=== PATIENT | female | born 1995 | race Caucasian/White ===

== ENCOUNTER → 2016-11-24 | Outpatient (CLI) | payer OTHER ==
[~2016-11-24] MED LIST: ATV5X PO; EFFSR75 PO; FLUO10CA24 PO; LITH1TAB PO; METF750T PO; OLAN1TAB9 PO; ZYP15 PO
--- NOTE | 2016-11-24 11:12 | DIAGNOSTIC IMAGING REPORT ---
CHEST 2 VIEWS ROUTINE CLINICAL HISTORY: J45.901 Asthma with acute exacerbation dyspnea COMPARISON STUDY: 11/16/2015 FINDINGS: The bones soft tissues and hemidiaphragms are normal. The cardiomediastinal silhouette is normal. The lungs are clear. The pulmonary vasculature is normal. IMPRESSION: Negative chest. Electronically signed by: Shiv Ta M.D. 11/24/2016 11:10 AM Dictated Date/Time: 11/24/2016 11:10 AM
== END | disposition home or self-care (01) ==
LOC: C.RAD1850 10:51
PROVIDERS: ATTEND Nurse Practitioner Family
DX: J45.901 Unspecified asthma with (acute) exacerbation (principal)

== ENCOUNTER → 2017-05-18 | Outpatient (CLI) | payer OTHER ==
[2017-05-18 15:44] LABS: BASO % 0.3 %; BASO ABS # 0.03 K/uL (0-0.2); COMPLETE YES; EOS % 0.9 %; HEMATOCRIT 39.3 % (37-47); IG% 0.4 %; LYMPH % 34.3 %; LYMPH ABS # 3.32 K/uL (1.2-3.4); MEAN CELL VOLUME 85.1 fL (80-100); MEAN CORPUSCULAR HEMOGLOBIN 28.6 pg (25-34); MEAN CORPUSCULAR HGB CONC 33.6 g/dl (32-36); MEAN PLATELET VOLUME 11.1 fL (7.4-10.4); MONO % 5.8 %; NEUT % 58.3 %; PLATELET COUNT 230 K/uL (130-400); RED BLOOD COUNT 4.62 M/uL (4.2-5.4); WHITE BLOOD COUNT 9.68 K/uL (4.8-10.8)
[2017-05-18 15:58] LABS: ALT/SGPT 62 U/L (12-78); BLOOD UREA NITROGEN 12 mg/dl (7-18); BUN/CREATININE RATIO 15.8 (10-20); CALCIUM 8.8 mg/dl (8.5-10.1); CARBON DIOXIDE 25 mmol/L (21-32); CHLORIDE 103 mmol/L (98-107); CHOLESTEROL 210 mg/dl (0-200); CREATININE 0.76 mg/dl (0.60-1.20); GLUCOSE 262 mg/dl (70-99); POTASSIUM 3.8 mmol/L (3.5-5.1); SODIUM 137 mmol/L (136-145); TRIGLYCERIDES 470 mg/dl (0-150)
[2017-05-18 16:01] LABS: ALKALINE PHOSPHATASE 86 U/L (45-117); AST/SGOT 64 U/L (15-37); CHOLESTEROL/HDL RATIO 6.4; HDL CHOLESTEROL 33 mg/dl
[2017-05-19 07:03] LABS: ESTIMATED AVERAGE GLUCOSE 200 mg/dl; HA1C FLAG Normal (Normal)
== END | disposition home or self-care (01) ==
LOC: C.LAB1850 13:47
PROVIDERS: ATTEND Family Medicine
DX: E11.9 Type 2 diabetes mellitus without complications (principal); R42 Dizziness and giddiness

== ENCOUNTER 2017-07-18 11:54 | Inpatient (IN) | payer OTHER ==
[~2017-07-18] VITALS: Ht 152.4 cm; Wt 85.5 kg
--- NOTE | 2017-07-18 12:40 | EMERGENCY ROOM VISIT NOTE ---
History Report prepared by Saran: Chip Hawkins Under the Supervision of: Dr. Reji Aiken M.D. First contact with patient: 12:21 Chief Complaint: MENTAL HEALTH EVALUATION Stated Complaint: MENTAL HEALTH History of Present Illness The patient is a 22 year old female who presents to the Emergency Room for a mental health evaluation. She has had suicidal ideation for the past 2 days with a plan to stab herself to . On June 25 of this year, she discontinued her Zyprexa and started Latuda. She notes that her Latuda is making her nauseated and she is experiencing vomiting. Although her sugars are high, after stopping the Zyprexa her sugars are improving. She is also having mood swings, trouble concentrating, and spells of jealousy. She denies any homicidal ideation. She is not taking [place]. She cut herself (scraped) very mildly on her left arm recently. In the past, she has been evaluated as an inpatient at multiple psychiatric facilities with the most recent stay 3 years ago. Source of History: patient Onset: Two days ago Position: other (Mental Health) Symptom Intensity: moderate Quality: other (SI) Timing: constant Associated Symptoms: + nausea, + vomiting Note: She has a SI with a plan. She denies any HI. Review of Systems See HPI for pertinent positives & negatives. A total of 10 systems reviewed and were otherwise negative. Past Medical & Surgical Medical Problems: (1) Atrial septal defect (2) Depression (3) Schizophrenia Family History FH: heart disease Social History Smoking Status: Never Smoker Alcohol Use: none Marital Status: single Housing Status: lives with family Occupation Status: student Current/Historical Medications Scheduled Alprazolam (Xanax), 0.5 MG PO DAILY Bupropion (Wellbutrin), 50 MG PO QAM Escitalopram (Lexapro), 10 MG PO AFTERNOON Escitalopram Oxalate (Lexapro), 20 MG PO QAM Lurasidone Hcl (Latuda), 40 MG PO QAM Metformin Hcl (Glucophage), 500 MG PO BID Oxcarbazepine (Trileptal), 300 MG PO TID Polyethylene (Miralax), 17 GM PO DAILY Allergies Coded Allergies: Azithromycin (Unverified Allergy, Unknown, unknown, 07/18/17) Carbamazepine (Verified Allergy, Unknown, 07/18/17) Cefaclor (Verified Allergy, Unknown, 07/18/17) Sulfisoxazole (Verified Allergy, Unknown, 07/18/17) Physical Exam Vital Signs Date Time Temp Pulse Resp B/P (MAP) Pulse Ox O2 Delivery O2 Flow Rate FiO2 07/18/17 12:59 78 16 127/79 96 Room Air 07/18/17 11:57 37.0 88 18 122/74 98 Room Air Physical Exam GENERAL: Patient is in no acute distress. HEENT: No acute trauma, normocephalic atraumatic, mucous membranes moist, no nasal congestion, no scleral icterus. NECK: No stridor, no adenopathy, no meningismus, trachea is midline. LUNGS: Clear to auscultation bilaterally, no wheeze, no rhonchi, breath sounds equal. HEART: Without murmurs gallops or rubs, regular rate and rhythm. ABDOMEN: Soft, nontender, bowel sounds positive, no hernias, no peritonitis. EXTREMITIES: No cyanosis or edema, full range of motion of all the joints without pain or difficulty, no signs for acute trauma. NEUROLOGIC: Oriented x 3, no acute motor or sensory deficits, no focal weakness. SKIN: No rash, no jaundice, no diaphoresis. PSYCHOLOGIC: Flat affect. Cooperative and voluntary. Admits to suicidal ideation with a plan to stab herself. Medical Decision & Procedures Laboratory Results 07/18/17 12:15 07/18/17 12:15 Test 07/18/17 12:15 07/18/17 12:30 Red Blood Count 4.96 M/uL (4.2-5.4) Mean Corpuscular Volume 86.9 fL (80-100) Mean Corpuscular Hemoglobin 28.6 pg (25-34) Mean Corpuscular Hemoglobin Concent 32.9 g/dl (32-36) RDW Standard Deviation 40.0 fL (36.4-46.3) RDW Coefficient of Variation 12.5 % (11.5-14.5) Mean Platelet Volume 10.8 fL (7.4-10.4) Anion Gap 8.0 mmol/L (3-11) Est Creatinine Clear Calc Drug Dose 107.5 ml/min Estimated GFR () 122.3 Estimated GFR (Non- 105.5 BUN/Creatinine Ratio 14.0 (10-20) Calcium Level 9.1 mg/dl (8.5-10.1) Total Bilirubin 0.3 mg/dl (0.2-1) Aspartate Amino Transf (AST/SGOT) 23 U/L (15-37) Alanine Aminotransferase (ALT/SGPT) 42 U/L (12-78) Alkaline Phosphatase 95 U/L (45-117) Total Protein 8.0 gm/dl (6.4-8.2) Albumin 4.1 gm/dl (3.4-5.0) Globulin 3.9 gm/dl (2.5-4.0) Albumin/Globulin Ratio 1.1 (0.9-2) Thyroid Stimulating Hormone (TSH) 0.650 uIu/ml (0.300-4.500) Human Chorionic Gonadotropin, Qual NEG (NEG) Salicylates Level < 1.7 mg/dl (2.8-20) Acetaminophen Level < 2 ug/ml (10-30) Ethyl Alcohol mg/dL < 3.0 mg/dl (0-3) Urine Color DK YELLOW Urine Appearance CLEAR (CLEAR) Urine pH 6.0 (4.5-7.5) Urine Specific [place] 1.030 (1.000-1.030) Urine Protein NEG (NEG) Urine Glucose (UA) NEG (NEG) Urine Ketones TRACE (NEG) Urine Occult Blood NEG (NEG) Urine Nitrite NEG (NEG) Urine Bilirubin NEG (NEG) Urine Urobilinogen NEG (NEG) Urine Leukocyte Esterase NEG (NEG) Urine Opiates Screen NEG (NEG) Urine Methadone, Qualitative NEG (NEG) Urine Barbiturates NEG (NEG) Urine Phencyclidine (PCP) Level NEG (NEG) Ur Amphetamine/Methamphetamine NEG (NEG) MDMA (Ecstasy) Screen POS (NEG) Urine Benzodiazepines Screen POS (NEG) Urine Cocaine Metabolite NEG (NEG) Urine Marijuana (THC) NEG (NEG) Laboratory results reviewed by me. ED Course 1221: The patient was evaluated in room A7. A complete history and physical exam was performed. 1635: She was accepted to [address] [place] [address] for further mental health treatment and management as an inpatient. Medical Decision Differential diagnosis includes but is not limited to drug or alcohol abuse, medication reaction, situational depression, psychosis, electrolyte imbalance, and thyroid disorder. There is no leukocytosis or concerning anemia. No significant electrolyte abnormality, kidney failure or hepatitis. The patient appears to be in a euthyroid state. testing is negative. Urinalysis does not show infection. Urine tox shows benzos and possibly ecstasy. Aspirin and Tylenol levels were undetectable. Alcohol level was undetectable. The patient presents with suicidal ideation with a plan. She is voluntary and cooperative. She was felt medically clear for a psychiatric evaluation. She has been accepted into our [facility] [place] [facility]. She is being transferred to that portion of the hospital. Medication Reconcilliation Current Medication List: was personally reviewed by me Blood Pressure Screening Patient's blood pressure: Normal blood pressure Blood pressure disposition: Did not require urgent referral Impression Primary Impression: Suicidal ideation Scribe Attestation The scribe's documentation has been prepared under my direction and personally reviewed by me in its entirety. I confirm that the note above accurately reflects all work, treatment, procedures, and medical decision making performed by me. Departure Information Dispostion Mental Health Acute Care Referrals No Doctor, Assigned (PCP) Patient Instructions [facility]
[2017-07-18 12:45] LABS: URINE APPEARANCE CLEAR (CLEAR); URINE BILIRUBIN NEG (NEG); URINE COLOR DK YELLOW; URINE NITRITE NEG (NEG); UROBILINOGEN NEG (NEG); ZZUR CULT IF INDIC CLEAN CATCH NO
[2017-07-18 12:47] LABS: MANUAL MICROSCOPIC REQUIRED? NO; REVIEW REQ? NO
[2017-07-18 13:05] LABS: CALCIUM 9.1 mg/dl (8.5-10.1); CREATININE 0.79 mg/dl (0.60-1.20); POTASSIUM 3.8 mmol/L (3.5-5.1)
[2017-07-18 13:15] LABS: ALB/GLOB RATIO 1.1 (0.9-2); THYROID STIMULATING HORMONE 0.65 uIu/ml (0.300-4.500)
[2017-07-18 13:16] LABS: HEMATOCRIT 43.1 % (37-47); MEAN CELL VOLUME 86.9 fL (80-100); MEAN CORPUSCULAR HEMOGLOBIN 28.6 pg (25-34); MEAN CORPUSCULAR HGB CONC 32.9 g/dl (32-36); MEAN PLATELET VOLUME 10.8 fL (7.4-10.4); PLATELET COUNT 290 K/uL (130-400); RED BLOOD COUNT 4.96 M/uL (4.2-5.4); WHITE BLOOD COUNT 10.68 K/uL (4.8-10.8)
[2017-07-18 13:16] LABS: BENZODIAZEPINE, URINE POS (NEG); COCAINE,URINE NEG (NEG); PHENCYCLIDINE, URINE NEG (NEG)
[2017-07-18 13:17] LABS: PREG INTERNAL NEGATIVE QC NEG CLEAR BACKGROUND; PREG INTERNAL POSITIVE QC POS CONTROL LINE
[2017-07-18] MEDS ORDERED: ESCI10TA17 PO (13:29)
[2017-07-18] MEDS ORDERED: OXCA300T PO (13:29)
[2017-07-18] MEDS ORDERED: MRLP17 PO (13:29)
[2017-07-18] MEDS ORDERED: GLC/500 PO (13:29)
[2017-07-18] MEDS ORDERED: ALPR-411 PO (13:29)
[2017-07-18] MEDS ORDERED: ESCI1TAB10 PO (13:29)
[2017-07-18] MEDS ORDERED: BUPR-83 PO (13:29)
[2017-07-18] MEDS ORDERED: LURA40TA PO (13:29)
[2017-07-18 13:31] LABS: ACETAMINOPHEN < 2 ug/ml (10-30)
[2017-07-18 17:00] VITALS: O2SAT 97
[2017-07-18] MEDS ORDERED: SODIUM CHLORIDE 0.65% NA SOLN 45 ML (OCEAN) PRN (17:00)
[2017-07-18] MEDS ORDERED: ALUMINUM/MAGNESIUM SUSP 30 ML UDC PO PRN (17:00)
[2017-07-18] MEDS ORDERED: MAGNESIUM HYDROXIDE SUSP 30 ML UDC PO PRN (17:00)
[2017-07-18] MEDS ORDERED: BISMUTH SUBSALICYLATE PER ML OMNICELL CHARGE PO PRN (17:00)
[2017-07-18] MEDS: METFORMIN HCL 500 MG TAB PO SCH (17:45)
[2017-07-18 18:14] VITALS: BP 123/79; PULSE 85; TEMP 36.8; BMI 36.8
[2017-07-18] MEDS: hydrOXYzine HCL 25 MG TAB PO PRN ×2 (18:33→21:19)
[2017-07-18] MEDS: OXCARBAZEPINE 150 MG TAB PO SCH (21:16)
[2017-07-19 06:37] VITALS: Ht 152.4 cm; Wt 85.5 kg
[2017-07-19 06:51] VITALS: BP_SYST 118; BP_SYST 125; BP_DIAS 72; BP_DIAS 76; PULSE 81; PULSE 89; TEMP 36.6
[2017-07-19] MEDS: METFORMIN HCL 500 MG TAB PO SCH ×2 (10:39→17:23)
[2017-07-19] MEDS: ESCITALOPRAM OXALATE 20 MG TAB PO SCH (10:39)
[2017-07-19] MEDS: OXCARBAZEPINE 150 MG TAB PO SCH ×3 (10:40→20:49)
[2017-07-19] MEDS: hydrOXYzine HCL 25 MG TAB PO PRN ×4 (10:41→20:55)
[2017-07-19] MEDS: POLYETHYLENE (MIRALAX) 17 GM PACK PO SCH (10:43)
--- NOTE | 2017-07-19 11:21 | Psychiatric History & Physical ---
History Date of Service Jul 19, 2017. Identifying Data Keyona Acuña is a 22-year-old female who currently lives in with her adoptive parents in [place]. Keyona Acuña was admitted on a 201 voluntary commitment. Patient is admitted from home. The patient was brought to the ED by the family. Information provided by the patient is considered to be somewhat limited given her intellectual disability but she clearly understands her rights under the 201 commitment as I explained them to her. Mother was contacted by phone for additional history. Chief Complaint "I can't live with my sisters, I'm not sure I want to live anymore period". History of Present Illness Patient was last admitted to [facility] in 2014 under similar circumstances-- argumentative with sisters and then threatening to stab self. Keyona admittedly can't tolerate when her sisters (also intellectually disabled, ages 21 and 31) get attention. She will make dramatic statements to gain attention and engage in self harm behaviors like stabbing at her chest with a pencil or scratching the back of her arms. She apparently put her hands to her neck as a gesture last pm with staff and scratched at her forearm but responded to low dose Vistaril. She has been following with Dr. Keane who had to discontinue her longstanding rx of Zyprexa in early May due to elevated blood sugar and mother did confirm that she has been diagnosed with Type II diabetes at this point. The patient likes Latuda as she has been losing weight but she seems to have significant nausea and poor PO with in. She has lost 21 lbs since starting it. Admittedly they have only tried in morning and she doesn't eat much breakfast. She has also been somewhat resistant to taking it due to constipation but ultimately complies. They recently attempted to decrease Trileptal dosing by 1 pill and she exhibited increase in manic symptoms--poor sleep, increased irritability and hyperverbal. The patient reports feeling in good spirits when out of the house at her day program with Michelle EDMONDS. Upon return home she feels depressed, hopeless and states she will refuse to return home. She is anhedonic at home and "always angry". Appetite and sleep have been more disrupted. She cannot really comment on anhedonia and lacks insight into her manic symptoms. She denies miranda "for some time" meaning years and states that she used to hear a man's voice and she odd figures like a ball with spikes, etc. Past Psychiatric History Current OP Treatment: psychiatrist (Lakhwinder), therapist (Taylor, same office), outpatient case manager (Katty) Prior OP Treatment: psychiatrist (past rx with Dr. Emanuel, Dr. Rosales prior to 2012 EHR conversion, initially with Dr. 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 2, 1 seizure that lasted >45 min, was on Depakote for several years after) (1) Atrial septal defect Type II DM per mother Allergies Allergies: Coded Allergies: Azithromycin (Unverified Allergy, Unknown, unknown, 07/18/17) Carbamazepine (Verified Allergy, Unknown, 07/18/17) Cefaclor (Verified Allergy, Unknown, 07/18/17) Sulfisoxazole (Verified Allergy, Unknown, 07/18/17) Home Medications Scheduled Alprazolam (Xanax), 0.5 MG PO DAILY Bupropion (Wellbutrin), 50 MG PO QAM Escitalopram (Lexapro), 10 MG PO AFTERNOON Escitalopram Oxalate (Lexapro), 20 MG PO QAM Lurasidone Hcl (Latuda), 40 MG PO QAM Metformin Hcl (Glucophage), 500 MG PO BID Oxcarbazepine (Trileptal), 300 MG PO TID Polyethylene (Miralax), 17 GM PO DAILY Family History FH: heart disease History of Suicide: No History of Substance Abuse: No Psychiatric History: Yes (biological mother and maternal grandmother with schizophrenia) Alcohol Use Alcohol Use In Past 12 Months: No AUDIT Total Score: 0 Smoking Use Smoking Status: Never Smoker Substance History denied Personal History Lives in: [place] with adoptive parents and 2 adoptive sisters Childhood: adopted at Education: graduated from high school ([employer] Work History: disabled but attends [employer] Relationship History: never Children: none Legal History: none Psychological Trauma History: Denies Hx Traumatic Event Review of Systems Psych: denies symptoms other than stated above Constitutional: intentional weight loss Cardiovascular: denied GI: nausea, poor PO, constipation Neurologic: hx of migraine headaches Remainder of 10 body systems also reviewed and denied other than noted above. Examination Physical Examination A physical exam was performed in the ER prior to admission to the unit by Dr. Aiken. I accept that physical as correct/medical clearance for the inpatient physical exam. Vital Signs Vital Signs Past 12 Hours Date Time Temp Pulse Resp B/P (MAP) Pulse Ox O2 Delivery O2 Flow Rate FiO2 07/19/17 06:51 36.6 81 16 125/72 89 118/76 Laboratory Results Last 24 Hours Test 07/18/17 12:15 07/18/17 12:30 White Blood Count 10.68 K/uL Red Blood Count 4.96 M/uL Hemoglobin 14.2 g/dL Hematocrit 43.1 % Mean Corpuscular Volume 86.9 fL Mean Corpuscular Hemoglobin 28.6 pg Mean Corpuscular Hemoglobin Concent 32.9 g/dl RDW Standard Deviation 40.0 fL RDW Coefficient of Variation 12.5 % Platelet Count 290 K/uL Mean Platelet Volume 10.8 fL Sodium Level 139 mmol/L Potassium Level 3.8 mmol/L Chloride Level 102 mmol/L Carbon Dioxide Level 29 mmol/L Anion Gap 8.0 mmol/L Blood Urea Nitrogen 11 mg/dl Creatinine 0.79 mg/dl Est Creatinine Clear Calc Drug Dose 107.5 ml/min Estimated GFR () 122.3 Estimated GFR (Non- 105.5 BUN/Creatinine Ratio 14.0 Random Glucose 107 mg/dl Calcium Level 9.1 mg/dl Total Bilirubin 0.3 mg/dl Aspartate Amino Transf (AST/SGOT) 23 U/L Alanine Aminotransferase (ALT/SGPT) 42 U/L Alkaline Phosphatase 95 U/L Total Protein 8.0 gm/dl Albumin 4.1 gm/dl Globulin 3.9 gm/dl Albumin/Globulin Ratio 1.1 Thyroid Stimulating Hormone (TSH) 0.650 uIu/ml Human Chorionic Gonadotropin, Qual NEG Salicylates Level < 1.7 mg/dl Acetaminophen Level < 2 ug/ml Ethyl Alcohol mg/dL < 3.0 mg/dl Urine Color DK YELLOW Urine Appearance CLEAR Urine pH 6.0 Urine Specific [place] 1.030 Urine Protein NEG Urine Glucose (UA) NEG Urine Ketones TRACE Urine Occult Blood NEG Urine Nitrite NEG Urine Bilirubin NEG Urine Urobilinogen NEG Urine Leukocyte Esterase NEG Urine Opiates Screen NEG Urine Methadone, Qualitative NEG Urine Barbiturates NEG Urine Phencyclidine (PCP) Level NEG Ur Amphetamine/Methamphetamine NEG MDMA (Ecstasy) Screen POS Urine Benzodiazepines Screen POS Urine Cocaine Metabolite NEG Urine Marijuana (THC) NEG Mental Examination During interview pt is: alert and oriented, cooperative Appearance: disheveled Eye contact is: fair Motor behavior is: no abnormal motor movements Speech: normal in rate, rhythm & volume Affect: depressed Mood is: depressed Thought content: reality based without delusions Suicidal thought are: present, Plan: present ("scratch myself"), Intent: denied Homicidal thoughts are: denied Hallucinations: denies auditory, denies visual Cognition: language grossly intact Intelligence estimated to be: below average Insight: limited Judgement: limited Impression / Recommendations Impression Keyona is a 22 yo female with intellectual disability and a long standing diagnosis of schizoaffective disorder. She has been exhibiting breakthrough mood instability and acting out behaviors at home following discontinuation of Zyprexa due to medical side effects (hyperglycemia). Inventory Assets Strengths: supportive family, established outpatient providers Needs: more mature coping skills Risk Factors Assessment : Yes Access to guns: No Mental Health Diagnoses: Yes Substance use disorders: No Previous attempt: Yes Previous psychiatric stay: Yes Protective Factors Assessment Supportive family: Yes Recommendations (1) Schizoaffective disorder 07/19--The patient is admitted to [facility] ([facility]) on q 15 min checks (behavioral with suicide precautions) for safety. The patient will participate in group, recreational and milieu therapies and will be offered additional individual and family sessions as clinically appropriate. Will hold Wellbutrin given low dose, failure of previous titration, seizure hx, and current manic symptoms Vistaril prn (appears effective) in place of Xanax 0.5 mg po prn as reportedly sedating and ineffective at home mother and patient agreeable to titration of Trileptal 1200 mg total daily dose consider decrease in Lexapro if evidence of activation on unit restart Latuda (held overnight) at 20 mg with evening meal to improve tolerability pending more complete list of prior med trials. Mother relates 40 mg was lowest dose tried. Family aware of long term acute care registered nurse risks/need for monitoring for metabolic issues and TD. re-reviewed black box warnings re: SI with SSRIs in patients <24 yo (2) Type 2 diabetes mellitus continue metformin, doesn't appear to be cause of GI complaints will check lipid profile, glucose and HgbA1C in am given antipsychotic also am gluc checks like at home CPT Code Initial Hospital Care: 06920 Problem Qualifiers (1) Schizoaffective disorder: Schizoaffective disorder type: bipolar Qualified Codes: F25.0 - Schizoaffective disorder, bipolar type (2) Type 2 diabetes mellitus: Diabetes mellitus complication status: without complication
[2017-07-19] MEDS: ESCITALOPRAM OXALATE 10 MG TAB PO SCH (17:19)
[2017-07-19] MEDS: LURASIDONE HCL 40 MG TAB PO SCH (17:25)
[2017-07-19] MEDS: ACETAMINOPHEN 325 MG TAB PO PRN (20:55)
[2017-07-20] MEDS: ACETAMINOPHEN 325 MG TAB PO PRN (05:46)
[2017-07-20 06:58] VITALS: BP_SYST 122; BP_SYST 124; BP_DIAS 78; BP_DIAS 85; PULSE 75; PULSE 86; TEMP 36.7
[2017-07-20] MEDS: ESCITALOPRAM OXALATE 20 MG TAB PO SCH (08:42)
[2017-07-20] MEDS: OXCARBAZEPINE 150 MG TAB PO SCH ×3 (08:42→21:25)
[2017-07-20] MEDS: POLYETHYLENE (MIRALAX) 17 GM PACK PO SCH (08:43)
--- NOTE | 2017-07-20 10:07 | Psychiatric Progress Notes ---
Progress Note Date of Service Jul 20, 2017. Interval History Keyona Acuña is a 22-year-old female who currently lives in with her adoptive parents in [place]. Keyona Acuña was admitted on a 201 voluntary commitment. Patient is admitted from home. The patient was brought to the ED by the family. Information provided by the patient is considered to be somewhat limited given her intellectual disability but she clearly understands her rights under the 201 commitment as I explained them to her. Mother was contacted by phone for additional history. Chief Complaint "Not feeling too good". Subjective Patient was seen & assessed interval progress reviewed with Treatment Team. Staff report she participated in groups, ate dinner with peers, and had a visit from her father. She requested hydroxyzine 50mg last night, and slept well. This morning she reported dizziness, headache and nausea, and vomited prior to breakfast, but then ate her breakfast. She has been able to keep it down. She was restarted on lurasidone 20mg last PM with dinner, hydroxyzine was ordered in place of alprazolam as it was oversedating, oxcarbazepine was increased, Metformin was continued, and bupropion was held. Today, she reports feeling unwell, has a headache and nausea. She states this has been going on for "a while," initially saying it started before lurasidone, but later says it did not start until she started lurasidone. She states that her mood is improved, " I actually feel azucena happy," but says she doesn't want to go home "ever, because I'm afraid of my sisters, it's actually hate, and I'm afraid I'll turn on them." She reports longstanding anger at her sisters and issues with them. She has had anger outbursts and says she "flips out, afraid I'll just go nuts and kill them." She feels safe here, but not outside the hospital. She says her sisters "have severe MR, and I don't like being around them, don't like when people pay attention to them." Spoke to Seema, patient's mother, at her request. She also spoke with Dr. Cruz yesterday, and says she remembered some things she thought might be appropriate. She agrees that Keyona started having upset stomach when she started lurasidone at the end of May. (3 weeks prior to admission), and also seemed to be having more frequent headaches. She has also reported constipation and insomnia, but wanted to stay on the medication as she was losing weight, which she usually struggles to do. She had been doing better with decreased anger and jealousy as well on the lurasidone, which was a big improvement for her, so when she followed up with Dr. Keane last week, he increased from 20mg to 40mg daily, and decreased her oxcarbazepine (concern for constipation? per mother). Despite these changes, she had mood swings with anger and SI. She also has an apartment with Dr. Jones, her neurologist, for tingling in her body, trouble walking, and "a cold fischer to her brain." Review of Systems Constitutional: + weight loss, + weakness Abdomen: + nausea, + vomiting Sleep Information Total Hours of Sleep: 7.75 Meal Information Percent of Breakfast Consumed: 60 Percent of Lunch Consumed: 80 Percent of Dinner Consumed: 75 Mental Status Exam During interview pt is: alert and oriented, cooperative Appearance: disheveled Eye contact is: good Motor behavior is: steady gait & station (slowed), no abnormal motor movements Speech: normal in rate, rhythm & volume Affect: constricted (to tired, depressed, incongruent with stated mood) Mood is: other ("azucena happy") Thought process: goal directed, concrete Thought content: cognitive distortions (about sisters), reality based without delusions Suicidal thought are: denied Homicidal thoughts are: present (fears she will harm her sisters) Hallucinations: denies auditory, denies visual Cognition: attention grossly intact, language grossly intact Intelligence estimated to be: below average Insight: limited Judgement: limited Impression Keyona is a 22 yo female with intellectual disability and a long standing diagnosis of schizoaffective disorder. She has been exhibiting mood instability and acting out behaviors at home following discontinuation of olanzapine due to medical side effects (hyperglycemia), and requires inpatient treatment due to thoughts of harming her sisters, who are also ID, as she is jealous of the attention they receive. Multiple medication adjustments are being made here, including holding bupropion, restarting lurasidone and changing to dinner time to try to limit side effects, increasing her Trileptal for mood, and stopping alprazolam due to sedation. Plan (1) Schizoaffective disorder 07/19--The patient is admitted to [facility] ([facility]) on q 15 min checks (behavioral with suicide precautions) for safety. The patient will participate in group, recreational and milieu therapies and will be offered additional individual and family sessions as clinically appropriate. Will hold Wellbutrin given low dose, failure of previous titration, seizure hx, and current manic symptoms. Vistaril prn (appears effective) in place of Xanax 0.5 mg po prn as reportedly sedating and ineffective at home. Mother and patient agreeable to titration of Trileptal 1200 mg total daily dose. Consider decrease in Lexapro if evidence of activation on unit. Restart Latuda (held overnight) at 20 mg with evening meal to improve tolerability pending more complete list of prior med trials. Mother relates 40 mg was lowest dose tried. Family Aware of skilled nursing risks/need for monitoring for metabolic issues and TD. Re-reviewed black box warnings re: SI with SSRIs in patients <24 yo. 07/20--Continue escitalopram 20mg qam and 10mg qpm (consider decrease if appears activated/agitated), oxcarbazepine 300mg bid and 600mg qhs, and lurasidone 20mg with dinner (hold off on increasing dose due to nausea/vomiting , and lower dose may be used as metabolized by CYP 450 3A4, and oxcarbazepine is a mild inducer and inhibit CYP 450 2C19). --Re-order fasting labs for tomorrow, as patient ate crackers this AM so they weren't done. --She will need a family meeting with her parents once she is more stable, to review the issues with her sisters and work on discharge planning. --Request records from outpatient psychiatrist, Dr. Keane, and coordinate care. (2) Type 2 diabetes mellitus continue metformin, doesn't appear to be cause of GI complaints will check lipid profile, glucose and HgbA1C in am given antipsychotic also am gluc checks like at home 07/20--fasting labs ordered for this AM but don't appear to have been collected. (3) Nausea & vomiting 07/20--Patient reports headache, nausea, vomiting. Order ondansetron 4 mg when necessary nausea, has acetaminophen for headache, and will add ibuprofen as well. Encouraged to drink plenty of water to avoid dehydration. Discharge / Aftercare Planning Psychiatrist: Name: Dr. Keane Therapist: Name: Taylor Keane's office Finance Advisor: Name: Katty Yanez from [facility] Visit Code E&M Code: 52001 Inventory Assets Strengths: supportive family, established outpatient providers Needs: more mature coping skills Risk Factors Assessment : Yes Mental Health Diagnoses: Yes Substance use disorders: No Previous attempt: Yes Previous psychiatric stay: Yes Protective Factors Assessment Supportive family: Yes Data Vital Signs Last 24 Hrs: Date Time Temp Pulse Resp B/P (MAP) Pulse Ox O2 Delivery O2 Flow Rate FiO2 07/20/17 06:58 36.7 75 16 124/78 86 122/85 Meds Administered Last 24 Hrs: Meds Administered (Past 24Hrs) Medications (Trade) Dose Ordered Sig/[place] Route Start Time Stop Time Status Last Admin Dose Admin Acetaminophen (Tylenol Tab) 650 mg Q4H PRN PO 07/18/17 17:00 08/17/17 16:59 07/20/17 05:46 650 MG Hydroxyzine HCl (Vistaril Tab) 50 mg HSZ PRN PO 07/18/17 17:00 08/17/17 16:59 07/19/17 20:55 50 MG Hydroxyzine HCl (Vistaril Tab) 25 mg Q4H PRN PO 07/18/17 17:00 08/17/17 16:59 07/19/17 19:06 25 MG Escitalopram Oxalate (Lexapro Tab) 10 mg DAILYBD PO 07/19/17 16:00 08/18/17 15:59 07/19/17 17:19 10 MG Escitalopram Oxalate (Lexapro Tab) 20 mg QAM PO 07/19/17 09:00 08/18/17 08:59 07/20/17 08:42 20 MG Metformin HCl (Glucophage Tab) 500 mg BIDM PO 07/18/17 17:45 07/19/17 10:45 DC 07/19/17 10:39 500 MG Oxcarbazepine (Trileptal Tab) 300 mg TID PO 07/18/17 21:00 07/19/17 10:55 DC 07/19/17 10:40 300 MG Oxcarbazepine (Trileptal Tab) 300 mg BID17 PO 07/19/17 17:00 08/17/17 20:59 07/20/17 08:42 300 MG Oxcarbazepine (Trileptal Tab) 600 mg HS PO 07/19/17 22:00 08/18/17 21:59 07/19/17 20:49 600 MG Lurasidone HCl (Latuda Tab) 20 mg QDD PO 07/19/17 17:45 08/18/17 17:44 07/19/17 17:25 20 MG Metformin HCl (Glucophage Tab) 500 mg BID@1230,1745 PO 07/19/17 17:45 08/18/17 17:44 07/19/17 17:23 500 MG Lab Results Last 24 Hrs: Last 24 Hours Test 07/19/17 20:41 07/20/17 07:27 07/20/17 08:00 Bedside Glucose 134 mg/dl 142 mg/dl Problem Qualifiers (1) Schizoaffective disorder: Schizoaffective disorder type: bipolar Qualified Codes: F25.0 - Schizoaffective disorder, bipolar type (2) Type 2 diabetes mellitus: Diabetes mellitus complication status: without complication
[2017-07-20] MEDS: METFORMIN HCL 500 MG TAB PO SCH ×2 (12:20→19:53)
[2017-07-20] MEDS: IBUPROFEN 600 MG TAB PO PRN (13:03)
[2017-07-20] MEDS: ONDANSETRON 4MG OD TAB PO PRN (17:58)
[2017-07-20 18:17] VITALS: BP 133/84; PULSE 85; TEMP 36.9
[2017-07-20] MEDS ORDERED: NURSING VERBAL MED ORDER ONE (18:30)
[2017-07-20] MEDS ORDERED: SUMATRIPTAN SUCCINATE 50 MG TAB PO ONE (18:45)
[2017-07-20] MEDS ORDERED: SUMATRIPTAN SUCCINATE 50 MG TAB PO PRN (18:45)
[2017-07-20] MEDS: ESCITALOPRAM OXALATE 10 MG TAB PO SCH (19:53)
[2017-07-20] MEDS: LURASIDONE HCL 40 MG TAB PO SCH (19:54)
[2017-07-20] MEDS: hydrOXYzine HCL 25 MG TAB PO PRN (21:27)
[2017-07-21] MEDS: IBUPROFEN 600 MG TAB PO PRN ×2 (05:21→15:24)
[2017-07-21 06:46] VITALS: BP_SYST 104; BP_SYST 113; BP_DIAS 68; BP_DIAS 69; PULSE 83; PULSE 91; TEMP 36.8
[2017-07-21] MEDS: POLYETHYLENE (MIRALAX) 17 GM PACK PO SCH (09:00)
[2017-07-21 09:17] LABS: ESTIMATED AVERAGE GLUCOSE 151 mg/dl; HA1C FLAG Normal (Normal)
[2017-07-21] MEDS: ESCITALOPRAM OXALATE 20 MG TAB PO SCH (09:26)
[2017-07-21] MEDS: OXCARBAZEPINE 150 MG TAB PO SCH ×3 (09:27→21:07)
[2017-07-21 09:35] LABS: CHOLESTEROL/HDL RATIO 4.4
[2017-07-21] MEDS: hydrOXYzine HCL 25 MG TAB PO PRN ×2 (09:55→21:07)
[2017-07-21] MEDS ORDERED: ALPR1TAB3 PO (10:29)
[2017-07-21] MEDS ORDERED: BUPR100T8 PO (10:30)
[2017-07-21] MEDS ORDERED: ESCI1TAB10 PO (10:30)
[2017-07-21] MEDS ORDERED: LURA40TA PO (10:32)
[2017-07-21] MEDS ORDERED: OXCA300T PO (10:32)
[2017-07-21] MEDS ORDERED: ZOLP10TA PO (10:33)
[2017-07-21] MEDS ORDERED: ALPRAZOLAM 0.5 MG TAB PO SCH (10:45)
[2017-07-21] MEDS: METFORMIN HCL 500 MG TAB PO SCH ×2 (12:34→17:40)
--- NOTE | 2017-07-21 13:35 | Psychiatric Progress Notes ---
Progress Note Date of Service Jul 21, 2017. Interval History Keyona Acuña is a 22-year-old female who currently lives in with her adoptive parents in [place]. Keyona Acuña was admitted on a 201 voluntary commitment. Patient is admitted from home. The patient was brought to the ED by the family. Information provided by the patient is considered to be somewhat limited given her intellectual disability but she clearly understands her rights under the 201 commitment as I explained them to her. Mother was contacted by phone for additional history. Chief Complaint "I can't breathe". Subjective Patient was seen & assessed interval progress reviewed with Nursing. Staff report the patient was doing better on the unit last evening and this morning, with less anxiety, although she continued to report upset stomach, which she told staff she thought was due to being premenstrual. She had a good visit with her mother, and reported improved mood a community meeting last night. She requested and received Vistaril for sleep. This morning, she became anxious during her family meeting with her parents, was breathing heavily and wailing, and at times said that she couldn't catch her breath. Her parents shared that she has always been dependent on them, is not able to live independently, and has always been jealous of the attention that her sisters receive. Both sisters are severely intellectually disabled and function at a much lower level than the patient. In the past, the patient has declined referrals to ID group homes, as she does not want to be around other individuals with ID. She goes to a day program, [employer], where she goes on outings and volunteers, and does quite well in the program, but then becomes upset when she returns home and is around her sisters. She does get special alone time with her parents when her sisters private caregivers come, and has been able to go on vacation with her parents without her sisters. Parents were informed of the patient's statements that she would like to kill her sisters, and although they state she has become angry at them in the past, she has never made any attempt to harm them. They also confirmed that the patient is never left alone with them. Parents requested this physician participate in the meeting and had questions about why certain medications were adjusted, expressing their opinion that if the patient gets on the right medications she will no longer have negative thoughts about her sisters. Attempted to explain that there may not be a medication that specifically changes her thinking about this, as it is fairly chronic, but that medications can be held to assist with her most troublesome symptoms, including mood instability, irritability, and anxiety. They were upset that Dr. Keane's records hadn't been received, and staff have contact his office to request a be sent today, and were informed that they are very busy, but they did send the medication list. The med rec was updated, as it was incorrect. After the meeting, the patient was very distraught, wailing, and had to be assisted to calm down with staff direction for deep breathing. Her mother requested that she be given Xanax, which she is prescribed at home, and a one-time dose was provided. Sleep Information Total Hours of Sleep: 6.25 Meal Information Percent of Breakfast Consumed: 60 Percent of Lunch Consumed: 100 Percent of Dinner Consumed: 0 Mental Status Exam During interview pt is: alert and oriented, cooperative Appearance: disheveled, appeared stated age, other (obese) Eye contact is: fair Motor behavior is: steady gait & station (slowed), no abnormal motor movements Speech: normal in rate, rhythm & volume Affect: depressed, tearful, anxious, constricted Mood is: other ("I can't breathe") Thought process: goal directed, concrete Thought content: cognitive distortions (about sisters) Suicidal thought are: denied (but think she would be suicidal if she thought she was going to hurt her sisters) Homicidal thoughts are: present (fears she will harm her sisters) Hallucinations: denies auditory, denies visual Cognition: attention grossly intact, language grossly intact, other (memory impaired) Intelligence estimated to be: below average Insight: limited Judgement: limited Medication Trials (1) Past Psych Meds Patient poor historian, mother not able to list all. Used [facility] pharmacy consistently for years, records note (not inclusive)--Tegretol, Depakote (for seizure prophylaxis), Prozac, [place], Ativan, Zyprexa (up to 20 mg, stopped due to metabolic syndrome), Effexor XR, prior trial of Latuda, Xanax , something that caused a bubble on pituitary by Dr. Rosales (?Invega - likely prolactinoma), Clozaril for [address] Casanova (walked around like a zombie) Last Edited By: Bettye Blankenship on Jul 21, 2017 13:24 Impression Keyona is a 22 yo female with intellectual disability and a long standing diagnosis of schizoaffective disorder. She has been exhibiting mood instability and acting out behaviors at home following discontinuation of olanzapine due to medical side effects (hyperglycemia), and requires inpatient treatment due to thoughts of harming her sisters, who are also ID, as she is jealous of the attention they receive. Multiple medication adjustments are being made here, including holding bupropion and alprazolam, restarting lurasidone and changing to dinner time to try to limit side effects, increasing her Trileptal for mood. Plan (1) Schizoaffective disorder 07/19--The patient is admitted to [facility] ([facility]) on q 15 min checks (behavioral with suicide precautions) for safety. The patient will participate in group, recreational and milieu therapies and will be offered additional individual and family sessions as clinically appropriate. Will hold Wellbutrin given low dose, failure of previous titration, seizure hx, and current manic symptoms. Vistaril prn (appears effective) in place of Xanax 0.5 mg po prn as reportedly sedating and ineffective at home. Mother and patient agreeable to titration of Trileptal 1200 mg total daily dose. Consider decrease in Lexapro if evidence of activation on unit. Restart Latuda (held overnight) at 20 mg with evening meal to improve tolerability pending more complete list of prior med trials. Mother relates 40 mg was lowest dose tried. Family Aware of exterminator termite risks/need for monitoring for metabolic issues and TD. Re-reviewed black box warnings re: SI with SSRIs in patients <24 yo. 07/20--Continue escitalopram 20mg qam and 10mg qpm (consider decrease if appears activated/agitated), oxcarbazepine 300mg bid and 600mg qhs, and lurasidone 20mg with dinner (hold off on increasing dose due to nausea/vomiting , and lower dose may be used as metabolized by CYP 450 3A4, and oxcarbazepine is a mild inducer and inhibit CYP 450 2C19). --Re-order fasting labs for tomorrow, as patient ate crackers this AM so they weren't done. --She will need a family meeting with her parents once she is more stable, to review the issues with her sisters and work on discharge planning. --Request records from outpatient psychiatrist, Dr. Keane, and coordinate care. 07/21--again requested records from Dr. Keane, as they have not yet been received. They only sent a medication list, and we are waiting the remainder of the records to determine past treatment. The patient no longer wants to take lurasidone due to the side effects of this causing, so we will discontinue it. Continue to monitor nausea, headache, and vomiting to see if this improves. Discussed other antipsychotic options - thinks Invega caused some sort of brain tumor, clozapine caused sedation, and olanzapine worsened metabolic syndrome and insulin tolerance. They're not sure if she has tried aripiprazole, which may be an option moving forward. For now, we will continue with the increased dose of oxcarbazepine and her home dose of escitalopram. (2) Type 2 diabetes mellitus continue metformin, doesn't appear to be cause of GI complaints will check lipid profile, glucose and HgbA1C in am given antipsychotic also am gluc checks like at home 07/20--fasting labs ordered for this AM but don't appear to have been collected. (3) Nausea & vomiting 07/20--Patient reports headache, nausea, vomiting. Order ondansetron 4 mg when necessary nausea, has acetaminophen for headache, and will add ibuprofen as well. Encouraged to drink plenty of water to avoid dehydration. Discharge / Aftercare Planning Psychiatrist: Name: Dr. Keane Therapist: Name: Taylor at Dr Keane's office Inspector Bullet Slugs: Name: Katty Yanez from [facility] Neurologist: Name: Dr. Jones Date of Appointment: Jul 28, 2017 Visit Code E&M Code: 94655 Inventory Assets Strengths: supportive family, established outpatient providers Needs: more mature coping skills Risk Factors Assessment : Yes Mental Health Diagnoses: Yes Substance use disorders: No Previous attempt: Yes Previous psychiatric stay: Yes Protective Factors Assessment Supportive family: Yes Data Vital Signs Last 24 Hrs: Date Time Temp Pulse Resp B/P (MAP) Pulse Ox O2 Delivery O2 Flow Rate FiO2 07/21/17 06:46 36.8 83 16 113/69 91 104/68 07/20/17 18:17 36.9 85 14 133/84 Meds Administered Last 24 Hrs: Meds Administered (Past 24Hrs) Medications (Trade) Dose Ordered Sig/[place] Route Start Time Stop Time Status Last Admin Dose Admin Escitalopram Oxalate (Lexapro Tab) 10 mg DAILYBD PO 07/19/17 16:00 08/18/17 15:59 07/20/17 19:53 10 MG Oxcarbazepine (Trileptal Tab) 300 mg BID17 PO 07/19/17 17:00 08/17/17 20:59 07/21/17 09:27 300 MG Oxcarbazepine (Trileptal Tab) 600 mg HS PO 07/19/17 22:00 08/18/17 21:59 07/20/17 21:25 600 MG Lurasidone HCl (Latuda Tab) 20 mg QDD PO 07/19/17 17:45 08/18/17 17:44 07/20/17 19:54 20 MG Metformin HCl (Glucophage Tab) 500 mg BID@1230,1745 PO 07/19/17 17:45 08/18/17 17:44 07/21/17 12:34 500 MG Ondansetron HCl (Zofran Odt) 4 mg Q4H PRN PO 07/20/17 10:00 08/19/17 09:59 07/20/17 17:58 4 MG Ibuprofen (Motrin Tab) 600 mg Q6 PRN PO 07/20/17 10:00 08/19/17 09:59 07/21/17 05:21 600 MG Sumatriptan Succinate (Imitrex Tab) 50 mg NOW ONCE PO 07/20/17 18:45 07/20/17 18:46 DC 07/20/17 19:01 50 MG Alprazolam (Xanax Tab) 0.5 mg TODAY@1045 PO 07/21/17 10:45 07/21/17 12:00 DC 07/21/17 10:55 0.5 MG Lab Results Last 24 Hrs: Last 24 Hours Test 07/21/17 08:32 Fasting Glucose 119 mg/dl Estimated Average Glucose 151 mg/dl Hemoglobin A1c 6.9 % Triglycerides Level 216 mg/dl Cholesterol Level 170 mg/dl HDL Cholesterol 39 mg/dl LDL Cholesterol, Calculated 88 mg/dl VLDL Cholesterol, Calculated 43 mg/dl Cholesterol/HDL Ratio 4.4 Problem Qualifiers (1) Schizoaffective disorder: Schizoaffective disorder type: bipolar Qualified Codes: F25.0 - Schizoaffective disorder, bipolar type (2) Type 2 diabetes mellitus: Diabetes mellitus complication status: without complication
[2017-07-21] MEDS: ESCITALOPRAM OXALATE 10 MG TAB PO SCH (17:40)
[2017-07-21] MEDS ORDERED: NURSING DECISION MEDICATION ORDER SCH (19:15)
[2017-07-21] MEDS ORDERED: VNTHFA/IN INH (19:26)
[2017-07-21] MEDS: ALBUTEROL HFA INHALER 18 GM INH PRN (19:54)
[2017-07-22 07:00] VITALS: BP 137/86; PULSE 94; TEMP 36.1
[2017-07-22] MEDS: ESCITALOPRAM OXALATE 20 MG TAB PO SCH (08:37)
[2017-07-22] MEDS: IBUPROFEN 600 MG TAB PO PRN (08:37)
[2017-07-22] MEDS: POLYETHYLENE (MIRALAX) 17 GM PACK PO SCH (08:37)
[2017-07-22] MEDS: OXCARBAZEPINE 150 MG TAB PO SCH ×3 (08:37→21:09)
[2017-07-22] MEDS: ONDANSETRON 4MG OD TAB PO PRN (11:10)
[2017-07-22] MEDS ORDERED: SUMATRIPTAN SUCCINATE 50 MG TAB PO PRN (12:00)
--- NOTE | 2017-07-22 12:04 | Psychiatric Progress Notes ---
Progress Note Date of Service Jul 22, 2017. Interval History Keyona Acuña is a 22-year-old female who currently lives in with her adoptive parents in [place]. Keyona Acuña was admitted on a 201 voluntary commitment. Patient is admitted from home. The patient was brought to the ED by the family. Information provided by the patient is considered to be somewhat limited given her intellectual disability but she clearly understands her rights under the 201 commitment as I explained them to her. Mother was contacted by phone for additional history. Chief Complaint "I'm dizzy". Subjective Patient was seen & assessed interval progress reviewed with Treatment Team. Staff report the patient had a very difficult family meeting yesterday, and was very distraught and dramatic in her behavior. She received a one-time dose about past lab after the meeting, and was able to calm down once her parents left. She also received Vistaril when necessary last evening. She attended evening groups and participated appropriately, and appeared to sleep well. This morning, she has stayed in bed and is refusing groups, stating that she has a headache, feels dizzy. She took Motrin this morning, and is requesting Imitrex. She has a very hard time telling me when the various symptoms began. Her lurasidone was discontinued due to nausea and vomiting that she and her family felt were due to the medication, and although she did not have nausea last night, she has some this morning that began after she ate breakfast. No vomiting. We again discussed a trial of aripiprazole, which she agreed to. Staff have again called Dr. Keane's office to request records, as we still have not received them, and were unable to reach a person to speak with. The patient states her mood and anxiety are slightly improved today, and she feels safe here. She denies SI and HI, and feels she is becoming more accepting of the thought that she will have to go back home and discharge, but wants to keep working with her outpatient comp field case manager on a fdc placement. She struggles with her safety plan, stating that she will "just try to have good thoughts" when her sisters annoying her. Sleep Information Total Hours of Sleep: 8.00 Meal Information Percent of Breakfast Consumed: 60 Percent of Lunch Consumed: 100 Percent of Dinner Consumed: 90 Mental Status Exam During interview pt is: alert and oriented, cooperative, other (patient had to be retrieved from bed, and was reluctant to get up and participate in the interview.) Appearance: disheveled, appeared stated age, other (obese) Eye contact is: fair Motor behavior is: steady gait & station (slowed), no abnormal motor movements Speech: other (slowed) Affect: blunted Mood is: other ("better") Thought process: goal directed, concrete Thought content: cognitive distortions (about sisters) Suicidal thought are: denied Homicidal thoughts are: denied Hallucinations: denies auditory, denies visual Cognition: attention grossly intact, language grossly intact, other (memory impaired) Intelligence estimated to be: below average Insight: limited Judgement: limited Medication Trials (1) Past Psych Meds Patient poor historian, mother not able to list all. Used [facility] pharmacy consistently for years, records note (not inclusive)--Tegretol, Depakote (for seizure prophylaxis), Prozac, [place], Ativan, Zyprexa (up to 20 mg, stopped due to metabolic syndrome), Effexor XR, prior trial of Latuda, Xanax , something that caused a bubble on pituitary by Dr. Rosales (?Invega - likely prolactinoma), Clozaril for [address] Casanova (walked around like a zombie) Last Edited By: Bettye Blankenship on Jul 21, 2017 13:24 Impression Keyona is a 22 yo female with intellectual disability and a long standing diagnosis of schizoaffective disorder. She has been exhibiting mood instability and acting out behaviors at home following discontinuation of olanzapine due to medical side effects (hyperglycemia), and requires inpatient treatment due to thoughts of harming her sisters, who are also ID, as she is jealous of the attention they receive. Multiple medication adjustments are being made here, including holding bupropion and alprazolam, restarting lurasidone and changing to dinner time to try to limit side effects, increasing her Trileptal for mood. She ultimately requested to discontinue lurasidone, as she thinks that it is causing nausea and vomiting. We have made multiple attempts to get her outpatient records and has not been successful, so today we discussed a trial of aripiprazole which she agreed to. Plan (1) Schizoaffective disorder 07/19--The patient is admitted to [facility] ([facility]) on q 15 min checks (behavioral with suicide precautions) for safety. The patient will participate in group, recreational and milieu therapies and will be offered additional individual and family sessions as clinically appropriate. Will hold Wellbutrin given low dose, failure of previous titration, seizure hx, and current manic symptoms. Vistaril prn (appears effective) in place of Xanax 0.5 mg po prn as reportedly sedating and ineffective at home. Mother and patient agreeable to titration of Trileptal 1200 mg total daily dose. Consider decrease in Lexapro if evidence of activation on unit. Restart Latuda (held overnight) at 20 mg with evening meal to improve tolerability pending more complete list of prior med trials. Mother relates 40 mg was lowest dose tried. Family Aware of long term care phlebotomist risks/need for monitoring for metabolic issues and TD. Re-reviewed black box warnings re: SI with SSRIs in patients <24 yo. 07/20--Continue escitalopram 20mg qam and 10mg qpm (consider decrease if appears activated/agitated), oxcarbazepine 300mg bid and 600mg qhs, and lurasidone 20mg with dinner (hold off on increasing dose due to nausea/vomiting , and lower dose may be used as metabolized by CYP 450 3A4, and oxcarbazepine is a mild inducer and inhibit CYP 450 2C19). --Re-order fasting labs for tomorrow, as patient ate crackers this AM so they weren't done. --She will need a family meeting with her parents once she is more stable, to review the issues with her sisters and work on discharge planning. --Request records from outpatient psychiatrist, Dr. Keane, and coordinate care. 07/21--again requested records from Dr. Keane, as they have not yet been received. They only sent a medication list, and we are waiting the remainder of the records to determine past treatment. The patient no longer wants to take lurasidone due to the side effects of this causing, so we will discontinue it. Continue to monitor nausea, headache, and vomiting to see if this improves. Discussed other antipsychotic options - thinks Invega caused some sort of brain tumor, clozapine caused sedation, and olanzapine worsened metabolic syndrome and insulin tolerance. They're not sure if she has tried aripiprazole, which may be an option moving forward. For now, we will continue with the increased dose of oxcarbazepine and her home dose of escitalopram. 07/22-still have not received outpatient records, and have attempted to call her outpatient psychiatrist's office, but are not able to reach anyone. The patient would like to try different antipsychotic, and we discussed a trial of aripiprazole, which she agreed to. We reviewed the risks, benefits, and common side effects. Will start 2.5 mg daily today and titrate as tolerated. Continue oxcarbazepine and escitalopram. (2) Type 2 diabetes mellitus continue metformin, doesn't appear to be cause of GI complaints will check lipid profile, glucose and HgbA1C in am given antipsychotic also am gluc checks like at home 07/20--fasting labs ordered for this AM but don't appear to have been collected. (3) Nausea & vomiting 07/20--Patient reports headache, nausea, vomiting. Order ondansetron 4 mg when necessary nausea, has acetaminophen for headache, and will add ibuprofen as well. Encouraged to drink plenty of water to avoid dehydration. 07/22--lurasidone discontinued yesterday patient and family's request, continue to monitor. (4) Head ache 07/22--patient reports chronic headaches, and says she has Imitrex at home, so will order this when necessary. She also has acetaminophen and ibuprofen as needed, and ondansetron for nausea. She has an appointment with her neurologist , Dr. Jones, on 07/28/2017; we should send records to coordinate care. Discharge / Aftercare Planning Psychiatrist: Name: Dr. Keane Therapist: Name: Taylor at Dr Keane's office Electrophonic Engineer: Name: Katty Yanez from [facility] Neurologist: Name: Dr. Jones Date of Appointment: Jul 28, 2017 Visit Code E&M Code: 24545 Inventory Assets Strengths: supportive family, established outpatient providers Needs: more mature coping skills Risk Factors Assessment : Yes Mental Health Diagnoses: Yes Substance use disorders: No Previous attempt: Yes Previous psychiatric stay: Yes Protective Factors Assessment Supportive family: Yes Data Meds Administered Last 24 Hrs: Meds Administered (Past 24Hrs) Medications (Trade) Dose Ordered Sig/[place] Route Start Time Stop Time Status Last Admin Dose Admin Sumatriptan Succinate (Imitrex Tab) 50 mg NOW ONCE PO 07/20/17 18:45 07/20/17 18:46 DC 07/20/17 19:01 50 MG Alprazolam (Xanax Tab) 0.5 mg TODAY@1045 PO 07/21/17 10:45 07/21/17 12:00 DC 07/21/17 10:55 0.5 MG Albuterol (Ventolin Hfa) 2 puffs Q4H PRN INH 07/21/17 19:30 08/20/17 19:29 07/21/17 19:54 2 PUFFS Lab Results Last 24 Hrs: Last 24 Hours Test 07/22/17 08:33 Bedside Glucose 118 mg/dl Problem Qualifiers (1) Schizoaffective disorder: Schizoaffective disorder type: bipolar Qualified Codes: F25.0 - Schizoaffective disorder, bipolar type (2) Type 2 diabetes mellitus: Diabetes mellitus complication status: without complication
[2017-07-22] MEDS ORDERED: ARIPIprazole TAB 5 MG TAB PO ONE (12:15)
[2017-07-22] MEDS: METFORMIN HCL 500 MG TAB PO SCH ×2 (15:30→17:27)
[2017-07-22] MEDS: ESCITALOPRAM OXALATE 10 MG TAB PO SCH (16:56)
[2017-07-22] MEDS: ALBUTEROL HFA INHALER 18 GM INH PRN (20:33)
[2017-07-22] MEDS: hydrOXYzine HCL 25 MG TAB PO PRN (21:10)
[2017-07-23 06:45] VITALS: BP_SYST 120; BP_SYST 124; BP_DIAS 79; PULSE 20; PULSE 67; PULSE 86; TEMP 36.8
--- NOTE | 2017-07-23 08:37 | Psychiatric Progress Notes ---
Progress Note Date of Service Jul 23, 2017. Interval History Keyona Acuña is a 22-year-old female who currently lives in with her adoptive parents in [place]. Keyona Acuña was admitted on a 201 voluntary commitment. Patient is admitted from home. The patient was brought to the ED by the family. Information provided by the patient is considered to be somewhat limited given her intellectual disability but she clearly understands her rights under the 201 commitment as I explained them to her. Mother was contacted by phone for additional history. Chief Complaint "Good". Subjective Patient was seen & assessed interval progress reviewed with Nursing. Staff report she had multiple physical symptoms yesterday, including headache, sinus pressure, and congestion. She requested multiple prns. She stayed in bed much of the day, but attended 2 evening groups, and reported improved mood and denies SI and thoughts to harm her sisters. She ate 100% of most meals, but refused lunch yesterday as she didn't feel well. Today she says she was feeling ill yesterday with headache which improved with Imitrex, and feels better today. She reports "happy" mood, and denies SI, HI, and any thoughts of harming her sisters. She says she doesn't want to harm or kill her sisters, but is worried that she will have "negative feelings" about them. She is working on having more positive thoughts, distraction (enjoys renita, and is making a stuffed bulldog, blankets, doilies, scarves, baby hats, and washcloths), and is able to go to her older sister's house if she needs to take a break. Her father visited yesterday and she says it went well. She is tolerating the aripiprazole well so far. She denies hallucinations and paranoia. Sleep Information Total Hours of Sleep: 8.00 Meal Information Percent of Breakfast Consumed: 60 Percent of Lunch Consumed: 0 Percent of Dinner Consumed: 100 Mental Status Exam During interview pt is: alert and oriented, cooperative, other (patient had to be retrieved from bed) Appearance: appropriately dressed (in PJs), disheveled, appeared stated age, other (obese) Eye contact is: fair Motor behavior is: steady gait & station (slowed), no abnormal motor movements Speech: other (slowed) Affect: blunted Mood is: other ("happy") Thought process: goal directed, concrete Thought content: reality based without delusions Suicidal thought are: denied Homicidal thoughts are: denied Hallucinations: denies auditory, denies visual Cognition: attention grossly intact, language grossly intact, other (memory impaired) Intelligence estimated to be: below average Insight: limited Judgement: limited Medication Trials (1) Past Psych Meds Patient poor historian, mother not able to list all. Used [facility] pharmacy consistently for years, records note (not inclusive)--Tegretol, Depakote (for seizure prophylaxis), Prozac, [place], Ativan, Zyprexa (up to 20 mg, stopped due to metabolic syndrome), Effexor XR, prior trial of Latuda, Xanax , something that caused a bubble on pituitary by Dr. Rosales (?Invega - likely prolactinoma), Clozaril for [address] Casanova (walked around like a zombie) lurasidone - up to 60mg daily, stopped due to n/v Last Edited By: Bettye Blankenship on Jul 23, 2017 09:20 Impression Keyona is a 22 yo female with intellectual disability and a long standing diagnosis of schizoaffective disorder. She has been exhibiting mood instability and acting out behaviors at home following discontinuation of olanzapine due to medical side effects (hyperglycemia), and requires inpatient treatment due to thoughts of harming her sisters, who are also ID, as she is jealous of the attention they receive. Multiple medication adjustments are being made here, including holding bupropion and alprazolam, restarting lurasidone and changing to dinner time to try to limit side effects, increasing her Trileptal for mood. She ultimately requested to discontinue lurasidone, as she thinks that it is causing nausea and vomiting. We have made multiple attempts to get her outpatient records and has not been successful, so today we discussed a trial of aripiprazole which she agreed to. Plan (1) Schizoaffective disorder 07/19--The patient is admitted to [facility]) on q 15 min checks (behavioral with suicide precautions) for safety. The patient will participate in group, recreational and milieu therapies and will be offered additional individual and family sessions as clinically appropriate. Will hold Wellbutrin given low dose, failure of previous titration, seizure hx, and current manic symptoms. Vistaril prn (appears effective) in place of Xanax 0.5 mg po prn as reportedly sedating and ineffective at home. Mother and patient agreeable to titration of Trileptal 1200 mg total daily dose. Consider decrease in Lexapro if evidence of activation on unit. Restart Latuda (held overnight) at 20 mg with evening meal to improve tolerability pending more complete list of prior med trials. Mother relates 40 mg was lowest dose tried. Family Aware of rat exterminator risks/need for monitoring for metabolic issues and TD. Re-reviewed black box warnings re: SI with SSRIs in patients <24 yo. 07/20--Continue escitalopram 20mg qam and 10mg qpm (consider decrease if appears activated/agitated), oxcarbazepine 300mg bid and 600mg qhs, and lurasidone 20mg with dinner (hold off on increasing dose due to nausea/vomiting , and lower dose may be used as metabolized by CYP 450 3A4, and oxcarbazepine is a mild inducer and inhibit CYP 450 2C19). --Re-order fasting labs for tomorrow, as patient ate crackers this AM so they weren't done. --She will need a family meeting with her parents once she is more stable, to review the issues with her sisters and work on discharge planning. --Request records from outpatient psychiatrist, Dr. Keane, and coordinate care. 07/21--again requested records from Dr. Keane, as they have not yet been received. They only sent a medication list, and we are waiting the remainder of the records to determine past treatment. The patient no longer wants to take lurasidone due to the side effects of this causing, so we will discontinue it. Continue to monitor nausea, headache, and vomiting to see if this improves. Discussed other antipsychotic options - thinks Invega caused some sort of brain tumor, clozapine caused sedation, and olanzapine worsened metabolic syndrome and insulin tolerance. They're not sure if she has tried aripiprazole, which may be an option moving forward. For now, we will continue with the increased dose of oxcarbazepine and her home dose of escitalopram. 07/22-still have not received outpatient records, and have attempted to call her outpatient psychiatrist's office, but are not able to reach anyone. The patient would like to try different antipsychotic, and we discussed a trial of aripiprazole, which she agreed to. We reviewed the risks, benefits, and common side effects. Will start 2.5 mg daily today and titrate as tolerated. Continue oxcarbazepine and escitalopram. 07/23--Continue aripiprazole 2.5mg daily. -Discharge planning - needs f/u appointment with Dr. Keane, therapist Taylor, and case fitter Katty. -Has Neurology appointment with Dr. Jones 07/28 - send records to coordinate care. (2) Type 2 diabetes mellitus continue metformin, doesn't appear to be cause of GI complaints will check lipid profile, glucose and HgbA1C in am given antipsychotic also am gluc checks like at home 07/20--fasting labs ordered for this AM but don't appear to have been collected. 07/21--fasting glucose elevated at 119, Hgb A1C high 6.9 (est ave glucose of 151 ). (3) Nausea & vomiting 07/20--Patient reports headache, nausea, vomiting. Order ondansetron 4 mg when necessary nausea, has acetaminophen for headache, and will add ibuprofen as well. Encouraged to drink plenty of water to avoid dehydration. 07/22--lurasidone discontinued yesterday patient and family's request, continue to monitor. 07/23--nausea improved, but still present; also having chronic headaches (4) Head ache 07/22--patient reports chronic headaches, and says she has Imitrex at home, so will order this when necessary. She also has acetaminophen and ibuprofen as needed, and ondansetron for nausea. She has an appointment with her neurologist , Dr. Jones, on 07/28/2017; we should send records to coordinate care. Discharge / Aftercare Planning Psychiatrist: Name: Dr. Keane Therapist: Name: Taylor at Dr Keane's office Computer Forensics Investigator: Name: Katty Yanez from [facility] Neurologist: Name: Dr. Jones Date of Appointment: Jul 28, 2017 Visit Code E&M Code: 68996 Inventory Assets Strengths: supportive family, established outpatient providers Needs: more mature coping skills Risk Factors Assessment : Yes Mental Health Diagnoses: Yes Substance use disorders: No Previous attempt: Yes Previous psychiatric stay: Yes Protective Factors Assessment Supportive family: Yes Data Vital Signs Last 24 Hrs: Date Time Temp Pulse Resp B/P (MAP) Pulse Ox O2 Delivery O2 Flow Rate FiO2 07/23/17 06:45 36.8 67 20 124/79 86 120/79 20 Meds Administered Last 24 Hrs: Meds Administered (Past 24Hrs) Medications (Trade) Dose Ordered Sig/[place] Route Start Time Stop Time Status Last Admin Dose Admin Alprazolam (Xanax Tab) 0.5 mg TODAY@1045 PO 07/21/17 10:45 07/21/17 12:00 DC 07/21/17 10:55 0.5 MG Albuterol (Ventolin Hfa) 2 puffs Q4H PRN INH 07/21/17 19:30 08/20/17 19:29 07/22/17 20:33 2 PUFFS Sumatriptan Succinate (Imitrex Tab) 50 mg DAILY PRN PO 07/22/17 12:00 08/21/17 11:59 07/22/17 15:00 50 MG Aripiprazole (Abilify Tab) 2.5 mg 1215 ONCE PO 07/22/17 12:15 07/22/17 12:16 DC 07/22/17 12:54 2.5 MG Lab Results Last 24 Hrs: Last 24 Hours Test 07/23/17 07:48 Bedside Glucose 124 mg/dl Problem Qualifiers (1) Schizoaffective disorder: Schizoaffective disorder type: bipolar Qualified Codes: F25.0 - Schizoaffective disorder, bipolar type (2) Type 2 diabetes mellitus: Diabetes mellitus complication status: without complication
[2017-07-23] MEDS: ESCITALOPRAM OXALATE 20 MG TAB PO SCH (09:00)
[2017-07-23] MEDS: OXCARBAZEPINE 150 MG TAB PO SCH ×3 (09:00→22:16)
[2017-07-23] MEDS: ARIPIprazole TAB 5 MG TAB PO SCH (09:00)
[2017-07-23] MEDS: POLYETHYLENE (MIRALAX) 17 GM PACK PO SCH (09:04)
[2017-07-23 09:29] LABS: HYDROXYETHYLFLURAZEPAM CONF NEGATIVE NG/ML (CUTOFF=50); HYDROXYMIDAZOLAM NEGATIVE NG/ML (CUTOFF=50); HYDROXYTRIAZOLAM CONF NEGATIVE NG/ML (CUTOFF=50); TEMAZEPAM CONF NEGATIVE NG/ML (CUTOFF=50)
[2017-07-23] MEDS: ONDANSETRON 4MG OD TAB PO PRN (10:32)
[2017-07-23] MEDS: METFORMIN HCL 500 MG TAB PO SCH ×2 (12:52→17:26)
[2017-07-23] MEDS: ESCITALOPRAM OXALATE 10 MG TAB PO SCH (17:25)
[2017-07-23] MEDS: ALBUTEROL HFA INHALER 18 GM INH PRN (20:03)
[2017-07-24 06:51] VITALS: BP_SYST 113; BP_SYST 119; BP_DIAS 73; BP_DIAS 79; PULSE 77; PULSE 97; TEMP 36.8
[2017-07-24] MEDS: ESCITALOPRAM OXALATE 20 MG TAB PO SCH (08:25)
[2017-07-24] MEDS: ARIPIprazole TAB 5 MG TAB PO SCH (08:25)
[2017-07-24] MEDS: POLYETHYLENE (MIRALAX) 17 GM PACK PO SCH (08:26)
[2017-07-24] MEDS: OXCARBAZEPINE 150 MG TAB PO SCH (08:26)
[2017-07-24] MEDS: IBUPROFEN 600 MG TAB PO PRN (08:27)
[2017-07-24] MEDS ORDERED: OXCA300T PO (09:34)
[2017-07-24] MEDS ORDERED: ABL5 PO (09:34)
[2017-07-24] MEDS ORDERED: ATR25 PO (09:35)
[2017-07-24] MEDS ORDERED: OXCA600T3 PO (09:35)
--- NOTE | 2017-07-24 09:42 | Discharge Instructions ---
Discharge Information Report Includes Report will include the: Discharge Instructions & Summary Admission Admission Date / Time: Jul 18, 2017 at 16:48 Reason for Admission: Major Depression Recurrent Discharge Discharge Diagnosis / Problem: Depression Condition at Discharge: Good Discharge Goals Goal(s): Decrease discomfort, Improve disease control Activity Recommendations Activity Limitations: resume your previous activity . Instructions / Follow-Up Instructions / Follow-Up . SPECIAL CARE INSTRUCTIONS: 1. Follow through with your scheduled aftercare appointments. If unable to keep an appointment, please call to reschedule. 2. Take your medication only as prescribed. Medication should not be changed or stopped without the approval of your doctor. In the event of worsening symptoms or concerns about side effects, contact your doctor immediately. 3. Utilize new healthy coping skills, anger management skills, and stress management skills learned during your hospitalization. Journal feelings and process them with a support person. Identify stressors or situations that may result in relapse, deterioration or inappropriate behaviors and develop a plan to deal with those issues. 4. If your coping skills are ineffective and you are in crisis, contact your outpatient providers for direction. If unable to reach your providers, please call the CAN HELP LINE AT or go to the closest Emergency Room. 5. Avoid alcohol and un-prescribed drugs. 6. You have been provided with the Mental Health Advance Directives Pamphlet for your review. AFTERCARE APPOINTMENTS: * Please call your insurance company prior to your scheduled appointment to confirm your aftercare providers are covered. Take your insurance information to your appointments. . Discharge / Aftercare Planning Primary Care Physician: Name: Dr Griffin Date of Appointment: Jul 30, 2017 Time of Appointment: 10:20am Psychiatrist: Name: Dr. [facility]ane[facility] Date of Appointment: Jul 30, 2017 Time of Appointment: 11:45am Therapist: Name Of Therapist: Taylor Florez[facility] Appointment Comments: call to schedule, message left Maintenance Electrician: Name: Katty Yanez from [facility] Date of Appointment: Aug 03, 2017 Time of Appointment: 3:30pm Neurologist: Name: Dr. Jones Date of Appointment: Jul 28, 2017 Time of Appointment: 2:00pm . Follow-Up Care Plan for Follow-Up Care: The patient will see Dr. Keane on 07/30 Current Hospital Diet Patient's current hospital diet: Diabetes Type 2 Diet Discharge Diet Recommended Diet: Diabetes Type 2 Diet Procedures Procedures Performed: No Pending Studies Pending Studies at Discharge: No Medical Emergencies . Who to Call and When: Medical Emergencies: For questions or emergencies related to your hospital stay, please contact the Inpatient Behavioral Health Unit at [phone]. A battery recharger is on-call 20/04 for the Behavioral Health Unit for emergencies At any time you feel your situation is an emergency, you may also call 911 immediately. . Non-Emergent Contact Non-Emergency issues call your: Psychiatrist, Therapist Advance Directives Existing Advance Directive: No Do You Have an Existing Mental: No Existing Living Will: No Existing Power of Plasterer Apprentice: No Advance Directives Info Given: To Pt/S.O. Advance Directives Reason: Declines as Mental Health Visit. Discharge Summary Admission HPI Per the Admitting provider: Patient was last admitted to [facility] in 2014 under similar circumstances-- argumentative with sisters and then threatening to stab self. [place]ona admittedly can't tolerate when her sisters (also intellectually disabled, ages 21 and 31) get attention. She will make dramatic statements to gain attention and engage in self harm behaviors like stabbing at her chest with a pencil or scratching the back of her arms. She apparently put her hands to her neck as a gesture last pm with staff and scratched at her forearm but responded to low dose Vistaril. She has been following with Dr. Keane who had to discontinue her longstanding rx of Zyprexa in early May due to elevated blood sugar and mother did confirm that she has been diagnosed with Type II diabetes at this point. The patient likes Latuda as she has been losing weight but she seems to have significant nausea and poor PO with in. She has lost 21 lbs since starting it. Admittedly they have only tried in morning and she doesn't eat much breakfast. She has also been somewhat resistant to taking it due to constipation but ultimately complies. They recently attempted to decrease Trileptal dosing by 1 pill and she exhibited increase in manic symptoms--poor sleep, increased irritability and hyperverbal. The patient reports feeling in good spirits when out of the house at her day program with Michelle EDMONDS. Upon return home she feels depressed, hopeless and states she will refuse to return home. She is anhedonic at home and "always angry". Appetite and sleep have been more disrupted. She cannot really comment on anhedonia and lacks insight into her manic symptoms. She denies miranda "for some time" meaning years and states that she used to hear a man's voice and she odd figures like a ball with spikes, etc. Hospital Course (1) Schizoaffective disorder 07/19--The patient is admitted to [facility] ([facility]) on q 15 min checks (behavioral with suicide precautions) for safety. The patient will participate in group, recreational and milieu therapies and will be offered additional individual and family sessions as clinically appropriate. Will hold Wellbutrin given low dose, failure of previous titration, seizure hx, and current manic symptoms. Vistaril prn (appears effective) in place of Xanax 0.5 mg po prn as reportedly sedating and ineffective at home. Mother and patient agreeable to titration of Trileptal 1200 mg total daily dose. Consider decrease in Lexapro if evidence of activation on unit. Restart Latuda (held overnight) at 20 mg with evening meal to improve tolerability pending more complete list of prior med trials. Mother relates 40 mg was lowest dose tried. Family Aware of meterman risks/need for monitoring for metabolic issues and TD. Re-reviewed black box warnings re: SI with SSRIs in patients <24 yo. 07/20--Continue escitalopram 20mg qam and 10mg qpm (consider decrease if appears activated/agitated), oxcarbazepine 300mg bid and 600mg qhs, and lurasidone 20mg with dinner (hold off on increasing dose due to nausea/vomiting , and lower dose may be used as metabolized by CYP 450 3A4, and oxcarbazepine is a mild inducer and inhibit CYP 450 2C19). --Re-order fasting labs for tomorrow, as patient ate crackers this AM so they weren't done. --She will need a family meeting with her parents once she is more stable, to review the issues with her sisters and work on discharge planning. --Request records from outpatient psychiatrist, Dr. Keane, and coordinate care. 07/21--again requested records from Dr. Keane, as they have not yet been received. They only sent a medication list, and we are waiting the remainder of the records to determine past treatment. The patient no longer wants to take lurasidone due to the side effects of this causing, so we will discontinue it. Continue to monitor nausea, headache, and vomiting to see if this improves. Discussed other antipsychotic options - thinks Invega caused some sort of brain tumor, clozapine caused sedation, and olanzapine worsened metabolic syndrome and insulin tolerance. They're not sure if she has tried aripiprazole, which may be an option moving forward. For now, we will continue with the increased dose of oxcarbazepine and her home dose of escitalopram. 07/22-still have not received outpatient records, and have attempted to call her outpatient psychiatrist's office, but are not able to reach anyone. The patient would like to try different antipsychotic, and we discussed a trial of aripiprazole, which she agreed to. We reviewed the risks, benefits, and common side effects. Will start 2.5 mg daily today and titrate as tolerated. Continue oxcarbazepine and escitalopram. 07/23--Continue aripiprazole 2.5mg daily. -Discharge planning - needs f/u appointment with Dr. Keane, therapist Taylor, and home health care case manager Katty. -Has Neurology appointment with Dr. Jones 07/28 - send records to coordinate care. (2) Type 2 diabetes mellitus continue metformin, doesn't appear to be cause of GI complaints will check lipid profile, glucose and HgbA1C in am given antipsychotic also am gluc checks like at home 07/20--fasting labs ordered for this AM but don't appear to have been collected. 07/21--fasting glucose elevated at 119, Hgb A1C high 6.9 (est ave glucose of 151 ). (3) Nausea & vomiting 07/20--Patient reports headache, nausea, vomiting. Order ondansetron 4 mg when necessary nausea, has acetaminophen for headache, and will add ibuprofen as well. Encouraged to drink plenty of water to avoid dehydration. 07/22--lurasidone discontinued yesterday patient and family's request, continue to monitor. 07/23--nausea improved, but still present; also having chronic headaches (4) Head ache 07/22--patient reports chronic headaches, and says she has Imitrex at home, so will order this when necessary. She also has acetaminophen and ibuprofen as needed, and ondansetron for nausea. She has an appointment with her neurologist , Dr. Jones, on 07/28/2017; we should send records to coordinate care. Risk Factors Assessment : Yes Mental Health Diagnoses: Yes Substance use disorders: No Previous attempt: Yes Previous psychiatric stay: Yes Protective Factors Assessment Supportive family: Yes Day of Discharge Assessment COURSE OF HOSPITALIZATION: The patient has been on our unit for 6 days. She was admitted with feelings of anger toward her sisters who were getting more attention than she, and also with statements and ask about killing herself. This is not an unfamiliar [place] for [place] as she long has struggled at home with her sisters who are also mentally challenged. She admits that she doesn't like it when they get more attention than she does. She was also complaining of some persistent nausea and had recently been started on Latuda. Although there did not seem to be a clear correlation, the patient opted to come off of Latuda in favor of a trial of Abilify which is currently at 2.5 mg daily. Her adoptive parents were involved in meetings. He was very somatically focused throughout her stay with nausea, headaches, and other physical complaints. She seems to enjoy the attention she gets with these. Her parents visited almost daily to give support and encouragement. The patient had apparently been stable for a period of time on Zyprexa but this had to be discontinued when she developed elevated blood sugars and was diagnosed with type 2 diabetes. During her stay she was cooperative with group and individual counseling. She is quite concrete in her thinking and required assistance with most tasks. Her condition improved progressively throughout the hospitalization and she ultimately was without any further thoughts to harm herself or anyone else. DAY OF HOSPITALIZATION: The patient is requesting discharge today. She believes her mother will be able to come and pick her up. She is denying suicidal ideation or any thoughts to harm her sisters. Today she is casually dressed. Her hair is somewhat unkempt and she is trying to calm during the interview. She makes good eye contact. Gait and station are within normal limits. Speech is of normal rate volume and tone. Thoughts are organized, goal -directed, without evidence of thought disorder. Recent and remote memory are intact per conversation. Intelligence is estimated to be below average. Insight and judgment are improved over admission. Laboratory Test 07/18/17 12:15 07/18/17 12:30 07/21/17 08:32 07/23/17 07:48 White Blood Count 10.68 Red Blood Count 4.96 Hemoglobin 14.2 Hematocrit 43.1 Mean Corpuscular Volume 86.9 Mean Corpuscular Hemoglobin 28.6 Mean Corpuscular Hemoglobin Concent 32.9 RDW Standard Deviation 40.0 RDW Coefficient of Variation 12.5 Platelet Count 290 Mean Platelet Volume 10.8 Sodium Level 139 Potassium Level 3.8 Chloride Level 102 Carbon Dioxide Level 29 Anion Gap 8.0 Blood Urea Nitrogen 11 Creatinine 0.79 Est Creatinine Clear Calc Drug Dose 107.5 Estimated GFR () 122.3 Estimated GFR (Non- 105.5 BUN/Creatinine Ratio 14.0 Random Glucose 107 Calcium Level 9.1 Total Bilirubin 0.3 Aspartate Amino Transferase (AST) 23 Alanine Aminotransferase (ALT) 42 Alkaline Phosphatase 95 Total Protein 8.0 Albumin 4.1 Globulin 3.9 Albumin/Globulin Ratio 1.1 Thyroid Stimulating Hormone (TSH) 0.650 Human Chorionic Gonadotropin, Qual NEG Salicylates Level < 1.7 Acetaminophen Level < 2 Ethyl Alcohol mg/dL < 3.0 Urine Color DK YELLOW Urine Appearance CLEAR Urine pH 6.0 Urine Specific [place] 1.030 Urine Protein NEG Urine Glucose (UA) NEG Urine Ketones TRACE Urine Occult Blood NEG Urine Nitrite NEG Urine Bilirubin NEG Urine Urobilinogen NEG Urine Leukocyte Esterase NEG Urine Opiates Screen NEG Urine Methadone, Qualitative NEG Urine Barbiturates NEG Urine Phencyclidine (PCP) Level NEG Ur Amphetamine/Methamphetamine NEG Urine MDE-amphetamine (MDEA) negative Ur Methylenedioxyamphetamine (MDA) negative MDMA (Ecstasy) Screen POS Methylenedioxymethamphetamine (MDMA negative Urine Hydroxyalprazolam Confirm 155 Urine Benzodiazepines Screen POS 7-Amino Clonazepam Level NEGATIVE Urine Nordiazepam Confirmation NEGATIVE Urine Hydroxyethylflurazepam Level NEGATIVE Urine Lorazepam (GC/MS) NEGATIVE Urine Oxazepam Confirm (GC/MS) NEGATIVE Urine Temazepam Confirmation NEGATIVE Urine Hydroxytriazolam Confirmation NEGATIVE Urine Hydroxymidazolam Confirmation NEGATIVE Urine Cocaine Metabolite NEG Urine Marijuana (THC) NEG Fasting Glucose 119 Estimated Average Glucose 151 Hemoglobin A1c 6.9 Triglycerides Level 216 Cholesterol Level 170 HDL Cholesterol 39 LDL Cholesterol, Calculated 88 VLDL Cholesterol, Calculated 43 Cholesterol/HDL Ratio 4.4 POC Glucose 124 Test 07/24/17 07:48 POC Glucose 117 Total Time Total Time Spent (min): Greater than 30 minutes Total Time Included: examination of the patient, discharge planning, medication reconciliation, communication with other providers Tobacco Cessation at Discharge Smoking Status: Never Smoker FDA approved Prescription: non-smoker Problem Qualifiers (1) Schizoaffective disorder: Schizoaffective disorder type: bipolar Qualified Codes: F25.0 - Schizoaffective disorder, bipolar type (2) Type 2 diabetes mellitus: Diabetes mellitus complication status: without complication
== END 2017-07-24 10:43 | disposition home or self-care (01) | DRG 885 ==
LOC: C.EDB 11:54 → C.MHU 16:48
PROVIDERS: ADMIT Psychiatry & Neurology Child & Adolescent Psychiatry; ATTEND Psychiatry & Neurology Child & Adolescent Psychiatry
DX: F33.9 Major depressive disorder, recurrent, unspecified (principal); Q21.1 Atrial septal defect; E11.9 Type 2 diabetes mellitus without complications; F25.0 Schizoaffective disorder, bipolar type; F79 Unspecified intellectual disabilities; Z88.2 Allergy status to sulfonamides

== ENCOUNTER 2017-08-25 21:10 | Emergency (ER) | payer OTHER ==
[~2017-08-25] VITALS: Ht 152.4 cm; Wt 76.0 kg
[~2017-08-25 21:10] MED LIST changes: +ABL5 PO; +ATR25 PO; -ATV5X PO; -EFFSR75 PO; +ESCI1TAB10 PO; -FLUO10CA24 PO; +GLC/500 PO; -LITH1TAB PO; -METF750T PO; +MRLP17 PO; -OLAN1TAB9 PO; +OXCA300T PO; +OXCA600T3 PO; +VNTHFA/IN INH; -ZYP15 PO
[2017-08-25 21:15] VITALS: Ht 152.4 cm; Wt 76.0 kg
[2017-08-25] MEDS ORDERED: BENZTROPINE MESYLATE 1 MG/ML 2 ML AMP IV STA (21:58)
[2017-08-25] MEDS ORDERED: CHLO50TA6 PO (22:13)
[2017-08-25] MEDS ORDERED: CHLO1TAB15 PO (22:13)
[2017-08-25] MEDS ORDERED: OXCA300T PO ×2 (22:13)
[2017-08-25] MEDS ORDERED: ATV/1 PO (22:13)
[2017-08-25] MEDS ORDERED: VERA120T15 PO (22:20)
[2017-08-25] MEDS ORDERED: SUMA100T15 PO (22:20)
--- NOTE | 2017-08-25 22:26 | DIAGNOSTIC IMAGING REPORT ---
CHEST ONE VIEW PORTABLE CLINICAL HISTORY: ABDOMINAL PAIN/GI pain COMPARISON STUDY: 11/17/2016 1017 FINDINGS: The bones soft tissues and hemidiaphragms are normal. The cardiomediastinal silhouette is normal. The lungs are clear. The pulmonary vasculature is normal. IMPRESSION: Negative chest. The above report was generated using voice recognition software. It may contain grammatical, syntax or spelling errors. Electronically signed by: Shiv Ta M.D. 08/25/2017 10:24 PM Dictated Date/Time: 08/25/2017 10:24 PM
--- NOTE | 2017-08-25 22:45 | DIAGNOSTIC IMAGING REPORT ---
HEAD WITHOUT CONTRAST (CT) CT DOSE: 537.48 mGy.cm HISTORY: Mental status change slurred speech, LE weakness TECHNIQUE: Multiaxial CT images of the head were performed without the use of intravenous contrast. A dose lowering technique was utilized adhering to the principles of ALARA. Comparison: None. Findings: The paranasal sinuses and mastoid air cells are clear. The calvarium and skull base are intact. The ventricles and sulci are within normal limits. There is no mass, hematoma, midline shift, or acute infarct. Impression: No acute intracranial abnormality. The above report was generated using voice recognition software. It may contain grammatical, syntax or spelling errors. Electronically signed by: Shiv Ta M.D. 08/25/2017 10:43 PM Dictated Date/Time: 08/25/2017 10:43 PM
[2017-08-25 22:53] LABS: BASO % 0.3 %; BASO ABS # 0.04 K/uL (0-0.2); COMPLETE YES; EOS % 0.6 %; IG% 0.3 %; LYMPH % 31.1 %; LYMPH ABS # 3.87 K/uL (1.2-3.4); MEAN CELL VOLUME 87.8 fL (80-100); MEAN CORPUSCULAR HEMOGLOBIN 28.9 pg (25-34); MEAN CORPUSCULAR HGB CONC 32.9 g/dl (32-36); MEAN PLATELET VOLUME 10.6 fL (7.4-10.4); MONO % 6.1 %; NEUT % 61.6 %; PLATELET COUNT 258 K/uL (130-400); RED BLOOD COUNT 4.67 M/uL (4.2-5.4); WHITE BLOOD COUNT 12.45 K/uL (4.8-10.8)
[2017-08-25] MEDS ORDERED: ACETAMINOPHEN 325 MG TAB PO STA (22:58)
[2017-08-25] MEDS ORDERED: IBUPROFEN 200 MG TAB PO STA (22:58)
[2017-08-25 23:14] LABS: ALT/SGPT 37 U/L (12-78); BLOOD UREA NITROGEN 13 mg/dl (7-18); BUN/CREATININE RATIO 14.3 (10-20); CALCIUM 9.2 mg/dl (8.5-10.1); CARBON DIOXIDE 29 mmol/L (21-32); CHLORIDE 102 mmol/L (98-107); CREATININE 0.88 mg/dl (0.60-1.20); GLUCOSE 107 mg/dl (70-99); POTASSIUM 3.6 mmol/L (3.5-5.1); SODIUM 138 mmol/L (136-145)
[2017-08-25 23:17] LABS: ALKALINE PHOSPHATASE 76 U/L (45-117); AST/SGOT 20 U/L (15-37)
[2017-08-25 23:28] LABS: ACETAMINOPHEN < 2 ug/ml (10-30)
--- NOTE | 2017-08-25 23:45 | EMERGENCY ROOM VISIT NOTE ---
History Report prepared by Saran: Ana Cristina Carrillo Under the Supervision of: Dr. Sharif Emerson M.D. First contact with patient: 21:26 Chief Complaint: DIZZY Stated Complaint: DIZZY, PAIN Nursing Triage Summary: Patient has felt "off balance and dizzy" since yesterday. Reports that today it got worse. Yesterday patient stopped taking Geodon and started taking Thorazine. Patient has never taken Thorazine before. Patient also reports chest pain and muscle tightness in arms and legs. History of Present Illness The patient is a 22 year old white female with a past medical history of Depression, Schizophrenia, and Atrial Septal Defect who presents to the ED with a cc of worsening dizziness beginning yesterday. She notes that she has been off balance while walking around. Positive headache, heart racing, lightheadedness, muscle stiffness, tingling in her fingers, her limbs feeling heavy, and difficulty speaking. Negative abnormal eating/drinking, urinary symptoms, melena, hematochezia, and diarrhea. She notes that she was just started on Thorazine and stopped on Geodon. Source of History: patient Onset: yesterday Position: other (global) Quality: other (global) Timing: worsening Associated Symptoms: + headache, No melena, No hematochezia, No diarrhea, No urinary symptoms Note: The patient complains of her heart racing, lightheadedness, muscle stiffness, tingling in her fingers, her limbs feeling heavy, and difficulty speaking. The patient denies abnormal eating/drinking. Review of Systems See HPI for pertinent positives and negatives. A total of ten systems were reviewed and were otherwise negative. Past Medical & Surgical Medical Problems: (1) Atrial septal defect (2) Depression (3) Head ache (4) Nausea & vomiting (5) Past Psych Meds (6) Schizoaffective disorder (7) Schizophrenia Family History FH: heart disease Social History Smoking Status: Never Smoker Alcohol Use: none Marital Status: single Housing Status: lives with family Occupation Status: student Current/Historical Medications Scheduled Albuterol Hfa (Ventolin Hfa), 2 PUFFS INH Q4 Chlorpromazine Hcl (Thorazine), 50 MG PO BID Chlorpromazine Hcl (Thorazine), 100 MG PO HS Metformin Hcl (Glucophage), 500 MG PO BID Oxcarbazepine (Trileptal), 300 MG PO BID Oxcarbazepine (Trileptal), 600 MG PO HS Polyethylene (Miralax), 17 GM PO DAILY Sumatriptan Succinate (Imitrex), 1 TAB PO UD Verapamil (Calan), 120 MG PO DAILY Scheduled PRN Lorazepam (Ativan), 1 MG PO TID PRN for Anxiety Allergies Coded Allergies: Azithromycin (Unverified Allergy, Unknown, unknown, 08/25/17) Carbamazepine (Verified Allergy, Unknown, 08/25/17) Cefaclor (Verified Allergy, Unknown, 08/25/17) Sulfisoxazole (Verified Allergy, Unknown, 08/25/17) Physical Exam Vital Signs Date Time Temp Pulse Resp B/P (MAP) Pulse Ox O2 Delivery O2 Flow Rate FiO2 08/26/17 00:38 36.3 89 16 117/79 98 08/26/17 00:32 89 16 117/79 98 Room Air 08/25/17 23:11 88 16 125/66 98 Room Air 08/25/17 21:44 95 121/85 99 Room Air 08/25/17 21:41 91 08/25/17 21:15 36.3 99 20 126/78 100 Room Air Physical Exam GENERAL: Awake, alert, well-appearing, NAD HENT: Normocephalic, atraumatic. EYES: Normal conjunctiva. Sclera non-icteric. NECK: Supple. No nuchal rigidity. FROM. RESPIRATORY: CTAB, no rhonchi, wheezing, crackles CARDIAC: RRR, no MRG ABDOMEN: Soft, NTND, BS+ MSK: No chest wall TTP, no LE edema NEURO: CN 2-12 intact, lower extremity weakness bilaterally 4/5 strength, no dysmetria, no drift, good finger to nose, no sensory deficits, no clonus, no muscular rigidity, some slurred speech. SKIN: No rash or jaundice noted. Medical Decision & Procedures ER Provider Diagnostic Interpretation: Radiology results as stated below per my review and radiologist interpretation: HEAD WITHOUT CONTRAST (CT) CT DOSE: 537.48 mGy.cm HISTORY: Mental status change slurred speech, LE weakness TECHNIQUE: Multiaxial CT images of the head were performed without the use of intravenous contrast. A dose lowering technique was utilized adhering to the principles of ALARA. Comparison: None. Findings: The paranasal sinuses and mastoid air cells are clear. The calvarium and skull base are intact. The ventricles and sulci are within normal limits. There is no mass, hematoma, midline shift, or acute infarct. Impression: No acute intracranial abnormality. The above report was generated using voice recognition software. It may contain grammatical, syntax or spelling errors. Electronically signed by: Shiv Ta M.D. 08/25/2017 10:43 PM Dictated Date/Time: 08/25/2017 10:43 PM CHEST ONE VIEW PORTABLE CLINICAL HISTORY: ABDOMINAL PAIN/GI pain COMPARISON STUDY: 11/17/2016 1017 FINDINGS: The bones soft tissues and hemidiaphragms are normal. The cardiomediastinal silhouette is normal. The lungs are clear. The pulmonary vasculature is normal. IMPRESSION: Negative chest. The above report was generated using voice recognition software. It may contain grammatical, syntax or spelling errors. Electronically signed by: Shiv Ta M.D. 08/25/2017 10:24 PM Dictated Date/Time: 08/25/2017 10:24 PM Laboratory Results 08/25/17 22:22 Red Blood Count 4.67, Mean Corpuscular Volume 87.8, Mean Corpuscular Hemoglobin 28.9, Mean Corpuscular Hemoglobin Concent 32.9, Mean Platelet Volume 10.6, Neutrophils (%) (Auto) 61.6, Lymphocytes (%) (Auto) 31.1, Monocytes (%) (Auto) 6.1, Eosinophils (%) (Auto) 0.6, Basophils (%) (Auto) 0.3, Neutrophils # (Auto) 7.66, Lymphocytes # (Auto) 3.87, Monocytes # (Auto) 0.76, Eosinophils # (Auto) 0.08, Basophils # (Auto) 0.04 08/25/17 22:22 Test 08/25/17 22:22 08/25/17 23:47 White Blood Count 12.45 K/uL (4.8-10.8) Red Blood Count 4.67 M/uL (4.2-5.4) Hemoglobin 13.5 g/dL (12.0-16.0) Hematocrit 41.0 % (37-47) Mean Corpuscular Volume 87.8 fL (80-100) Mean Corpuscular Hemoglobin 28.9 pg (25-34) Mean Corpuscular Hemoglobin Concent 32.9 g/dl (32-36) Platelet Count 258 K/uL (130-400) Mean Platelet Volume 10.6 fL (7.4-10.4) Neutrophils (%) (Auto) 61.6 % Lymphocytes (%) (Auto) 31.1 % Monocytes (%) (Auto) 6.1 % Eosinophils (%) (Auto) 0.6 % Basophils (%) (Auto) 0.3 % Neutrophils # (Auto) 7.66 K/uL (1.4-6.5) Lymphocytes # (Auto) 3.87 K/uL (1.2-3.4) Monocytes # (Auto) 0.76 K/uL (0.11-0.59) Eosinophils # (Auto) 0.08 K/uL (0-0.5) Basophils # (Auto) 0.04 K/uL (0-0.2) RDW Standard Deviation 40.5 fL (36.4-46.3) RDW Coefficient of Variation 12.7 % (11.5-14.5) Immature Granulocyte % (Auto) 0.3 % Immature Granulocyte # (Auto) 0.04 K/uL (0.00-0.02) Anion Gap 7.0 mmol/L (3-11) Est Creatinine Clear Calc Drug Dose 90.6 ml/min Estimated GFR () 107.3 Estimated GFR (Non- 92.6 BUN/Creatinine Ratio 14.3 (10-20) Calcium Level 9.2 mg/dl (8.5-10.1) Total Bilirubin 0.1 mg/dl (0.2-1) Direct Bilirubin < 0.1 mg/dl (0-0.2) Aspartate Amino Transf (AST/SGOT) 20 U/L (15-37) Alanine Aminotransferase (ALT/SGPT) 37 U/L (12-78) Alkaline Phosphatase 76 U/L (45-117) Total Protein 7.7 gm/dl (6.4-8.2) Albumin 4.0 gm/dl (3.4-5.0) Lipase 286 U/L (73-393) Salicylates Level < 1.7 mg/dl (2.8-20) Acetaminophen Level < 2 ug/ml (10-30) Ethyl Alcohol mg/dL < 3.0 mg/dl (0-3) Urine Color YELLOW Urine Appearance CLEAR (CLEAR) Urine pH 7.5 (4.5-7.5) Urine Specific [place] 1.010 (1.000-1.030) Urine Protein NEG (NEG) Urine Glucose (UA) NEG (NEG) Urine Ketones NEG (NEG) Urine Occult Blood NEG (NEG) Urine Nitrite NEG (NEG) Urine Bilirubin NEG (NEG) Urine Urobilinogen NEG (NEG) Urine Leukocyte Esterase NEG (NEG) Laboratory results reviewed by me Medications Administered Medications (Trade) Dose Ordered Sig/[place] Route Start Time Stop Time Status Last Admin Dose Admin Benztropine Mesylate (Cogentin Inj) 1 mg NOW STAT IV 08/25/17 21:58 08/25/17 22:01 DC 08/25/17 22:25 1 MG Ibuprofen (Advil Tab) 400 mg NOW STAT PO 08/25/17 22:58 08/25/17 22:59 DC 08/25/17 23:05 400 MG Acetaminophen (Tylenol Tab) 650 mg NOW STAT PO 08/25/17 22:58 08/25/17 22:59 DC 08/25/17 23:05 650 MG ECG Indication: weakness Rate (beats per minute): 91 Rhythm: normal sinus Findings: other (normal axis, some t wave flattening laterally and inferiorly, no other STS or TWI) Comparison ECG Date: 06/08/2014 Change: no significant change ED Course 2141: The patient was evaluated in room A3. A complete history and physical exam was performed. 0025: I reevaluated the patient and she feels better. I spoke with the mother and told them to follow up cricket Carroll to discuss if they need to start a lower dose of Thorazine. Discussed results and discharge instructions: Her mother and her verbalized understanding and agreement. The patient is ready for discharge. Medical Decision The patient is a 22 year old white female with a past medical history of Depression, Schizophrenia, and Atrial Septal Defect who presents to the ED with a cc of worsening dizziness beginning yesterday. Etiologies such as mood disorder, infection, hypoglycemia, electrolyte abnormalities, cardiac sources, intracerebral event, toxicologic, neurologic, medication side effects, stroke, as well as others were entertained. Patient was seen and evaluated the bedside. Patient does have a known history of schizophrenia as well as bipolar disorder. Patient was recently taken off Geodon a serum Thorazine at 200 mg daily. Patient reports some changes in speech and some lower extremity weakness. On exam the patient does have some mild dysarthria, but does not have any sensory deficits. Patient does have symmetric lower extremity weakness present 4 out of 5 strength. Patient does not exhibit any clonus or rigidity. Patient is afebrile and her vital signs are stable. Patient did have blood work that was completed along with a urinalysis EKG and CT of the brain. Patient was also given Cogentin. I believe this is most likely to be a medication side effect. Patient's CT of the brain is negative. Patient dysarthria is no longer present. Patient's blood work fairly unremarkable. Patient did have a tox levels checked which were negative. Patient was able tolerate by mouth was feeling improved. Patient did sleep and again upon reassessment patient stated she was feeling much better. Patient was able to ambulate. Patient no longer had any slurred speech. Could be a possible TIA but given the recent medication change and the patient's relatively young age without any other risk factors, TIA/CVA is less likely. I did discuss the findings with the patient and the patient's mother and stated they should discuss the dosing as well as any other possible interactions with the new medication that was prescribed which was Thorazine. Patient is suitable for outpatient follow-up and treatment. Patient was given strict follow-up, discharge, and return precautions. All questions were answered. Patient was deemed suitable for outpatient follow-up at this time. Patient agreed with the plan of care and was safely discharged home. Medication Reconcilliation Current Medication List: was personally reviewed by me Blood Pressure Screening Patient's blood pressure: Normal blood pressure Blood pressure disposition: Did not require urgent referral Impression Primary Impression: Dizziness Additional Impressions: Head ache Medication side effect Scribe Attestation The scribe's documentation has been prepared under my direction and personally reviewed by me in its entirety. I confirm that the note above accurately reflects all work, treatment, procedures, and medical decision making performed by me. Departure Information Dispostion Home / Self-Care Referrals Stephenie Griffin MD (PCP) Forms HOME CARE DOCUMENTATION FORM, IMPORTANT VISIT INFORMATION Patient Instructions ED Dizziness [facility], My [facility] Additional Instructions Please return to the emergency department if you have worsening or recurrent symptoms not amenable to at-home treatment. Please call for a follow-up appointment with her primary care physician. Please take your medications as prescribed. If you have other concerns and/or complaints please feel free to also call your primary care physician's office or return the ED for further evaluation, management, and treatment. Please discuss with your psychiatrist about the dosing of your Thorazine. Please discuss any possible interactions with other medications. You may take 600 mg Ibuprofen every 6 hours as needed for pain with food for no more than 2 consecutive days. You may take tylenol 1000 mg every 6 hours as needed for pain. You may take motrin and tylenol separately or at the same time. If you were seen between 11pm and 7AM all radiology reads will be re-read by our in house staff. If any major discrepancies are discovered, you will be notified. You have been examined and treated today on an emergency basis only. This is not a substitute for, or an effort to provide, complete comprehensive medical care. It is impossible to recognize and treat all injuries or illnesses in a single emergency department visit. It is therefore important that you follow up closely with [facility], your PCP, and/or your specialist(s). Call as soon as possible for an appointment. Thank you for your time and consideration. I look forward to speaking with you again soon. Please don't hesitate to call us if you have any questions. Problem Qualifiers Additional Impressions: Head ache Headache type: unspecified Headache chronicity pattern: unspecified pattern Intractability: not intractable Qualified Codes: R51 - Headache Medication side effect Encounter type: initial encounter Qualified Codes: T88.7XXA - Unspecified adverse effect of drug or medicament, initial encounter
[2017-08-25 23:53] LABS: URINE APPEARANCE CLEAR (CLEAR); URINE BILIRUBIN NEG (NEG); URINE COLOR YELLOW; URINE NITRITE NEG (NEG); URINE PH 7.5 (4.5-7.5); UROBILINOGEN NEG (NEG); ZZUR CULT IF INDIC CLEAN CATCH NO
[2017-08-25 23:59] LABS: MANUAL MICROSCOPIC REQUIRED? NO; REVIEW REQ? NO
[2017-08-26 00:38] VITALS: BP 117/79; PULSE 89; TEMP 36.3; O2SAT 98
== END 2017-08-26 00:39 | disposition home or self-care (01) ==
LOC: C.EDB 21:11 → C.EDA 08-26 00:39
DX: R42 Dizziness and giddiness (principal); R51 Headache; T88.7XXA Unspecified adverse effect of drug or medicament, initial encounter; Q21.1 Atrial septal defect; F20.9 Schizophrenia, unspecified; Z79.899 Other long term (current) drug therapy

== ENCOUNTER 2017-08-30 11:30 | Emergency (ER) | payer OTHER ==
[~2017-08-30] VITALS: Ht 152.4 cm; Wt 80.1 kg
[~2017-08-30 11:30] MED LIST changes: -ABL5 PO; -ATR25 PO; +ATV/1 PO; +CHLO1TAB15 PO; +CHLO50TA6 PO; -ESCI1TAB10 PO; -OXCA600T3 PO; +SUMA100T15 PO; +VERA120T15 PO
[2017-08-30 11:33] VITALS: TEMP 36.6; Ht 152.4 cm; Wt 80.1 kg
[2017-08-30 12:24] LABS: URINE APPEARANCE CLEAR (CLEAR); URINE BILIRUBIN NEG (NEG); URINE COLOR DK YELLOW; URINE EPITHELIAL CELL AUTO >30 /lpf (0-5); URINE NITRITE NEG (NEG); URINE PH 6.5 (4.5-7.5); URINE SPECIFIC GRAVITY 1.018 (1.000-1.030); UROBILINOGEN NEG (NEG)
[2017-08-30] MEDS ORDERED: TEMA15CA4 PO (12:27)
[2017-08-30] MEDS ORDERED: ASEN1SUB PO (12:27)
[2017-08-30 12:28] LABS: MANUAL MICROSCOPIC REQUIRED? NO; REVIEW REQ? NO
[2017-08-30 12:44] LABS: BENZODIAZEPINE, URINE NEG (NEG); COCAINE,URINE NEG (NEG); PHENCYCLIDINE, URINE NEG (NEG)
[2017-08-30 13:01] LABS: BASO % 0.2 %; BASO ABS # 0.02 K/uL (0-0.2); COMPLETE YES; EOS % 0.5 %; HEMATOCRIT 42.5 % (37-47); IG% 0.2 %; LYMPH % 23.5 %; LYMPH ABS # 2.84 K/uL (1.2-3.4); MEAN CELL VOLUME 87.8 fL (80-100); MEAN CORPUSCULAR HEMOGLOBIN 28.9 pg (25-34); MEAN CORPUSCULAR HGB CONC 32.9 g/dl (32-36); MEAN PLATELET VOLUME 10.7 fL (7.4-10.4); MONO % 6.3 %; NEUT % 69.3 %; PLATELET COUNT 273 K/uL (130-400); RED BLOOD COUNT 4.84 M/uL (4.2-5.4); WHITE BLOOD COUNT 12.07 K/uL (4.8-10.8)
[2017-08-30 13:21] LABS: ALT/SGPT 49 U/L (12-78); BLOOD UREA NITROGEN 10 mg/dl (7-18); BUN/CREATININE RATIO 14.6 (10-20); CALCIUM 9.6 mg/dl (8.5-10.1); CARBON DIOXIDE 28 mmol/L (21-32); CHLORIDE 103 mmol/L (98-107); CREATININE 0.67 mg/dl (0.60-1.20); GLUCOSE 115 mg/dl (70-99); POTASSIUM 3.9 mmol/L (3.5-5.1); SODIUM 139 mmol/L (136-145)
[2017-08-30 13:32] LABS: ALKALINE PHOSPHATASE 82 U/L (45-117); AST/SGOT 26 U/L (15-37); THYROID STIMULATING HORMONE 0.342 uIu/ml (0.300-4.500)
[2017-08-30 14:45] VITALS: BP 124/79; PULSE 95; O2SAT 97
--- NOTE | 2017-08-30 19:09 | EMERGENCY ROOM VISIT NOTE ---
History Report prepared by Saran: Torres Zuniga Under the Supervision of: Dr. Johnnie Brody D.O. First contact with patient: 11:53 Chief Complaint: MENTAL HEALTH EVALUATION Stated Complaint: MENTAL HEALTH PROBLEMS History of Present Illness The patient is a 22 year old female who presents to the Emergency Room for a mental health evaluation for persistent suicidal ideation starting yesterday. The patient states that she has a plan to stab herself. She has a history of schizophrenia, depression, and anxiety. The patient states that she does not hear anything or see anything that is not there, though she used to have visual hallucinations. She states that she has had suicidal ideations for years, though it got worse yesterday. The patient additionally states that she is having some right leg pain due to punching and scratching herself. Patient notes that she makes these statements because she wants to get out of the house/ situation. She admits that she would not truly harm herself. Mom is at bedside and confirms this. She does not believe that the patient is a danger to herself. She has never attempted to kill herself before in the past. Source of History: patient Onset: yesterday Position: other (global) Quality: other (suicidal ideation) Timing: other (persistent) Note: Associated symptoms: Right leg pain Review of Systems See HPI for pertinent positives & negatives. A total of 10 systems reviewed and were otherwise negative. Past Medical & Surgical Medical Problems: (1) Atrial septal defect (2) Depression (3) Head ache (4) Nausea & vomiting (5) Past Psych Meds (6) Schizoaffective disorder (7) Schizophrenia Family History FH: heart disease Social History Smoking Status: Never Smoker Alcohol Use: none Marital Status: single Housing Status: lives with family Occupation Status: student Current/Historical Medications Scheduled Albuterol Hfa (Ventolin Hfa), 2 PUFFS INH Q4 Asenapine Maleate (Saphris), 2.5 MG PO BID Metformin Hcl (Glucophage), 500 MG PO BID Oxcarbazepine (Trileptal), 300 MG PO BID Oxcarbazepine (Trileptal), 600 MG PO HS Polyethylene (Miralax), 17 GM PO DAILY Sumatriptan Succinate (Imitrex), 1 TAB PO UD Temazepam (Restoril), 7.5 MG PO BID Verapamil (Calan), 120 MG PO DAILY Allergies Coded Allergies: Chlorpromazine (Unverified Allergy, Severe, BREATHING,CHEST PAINS,LEG PAIN , 08/30/17) Azithromycin (Unverified Allergy, Unknown, unknown, 08/30/17) Carbamazepine (Verified Allergy, Unknown, 08/30/17) Cefaclor (Verified Allergy, Unknown, 08/30/17) Sulfisoxazole (Verified Allergy, Unknown, 08/30/17) Physical Exam Vital Signs Date Time Temp Pulse Resp B/P (MAP) Pulse Ox O2 Delivery O2 Flow Rate FiO2 08/30/17 14:45 95 124/79 97 08/30/17 11:33 36.6 92 18 124/78 98 Room Air Physical Exam GENERAL: Sitting up in bed, depressed, no distress, non-toxic EYE EXAM: normal conjunctiva. OROPHARYNX: no exudate, no erythema, lips, buccal mucosa, and tongue normal and mucous membranes are moist NECK: supple, no nuchal rigidity, no adenopathy, non-tender LUNGS: Clear to auscultation. Normal chest wall mechanics HEART: no murmurs, S1 normal and S2 normal ABDOMEN: abdomen soft, non-tender, normo-active bowel sounds, no masses, no rebound or guarding. BACK: Back is symmetrical on inspection and there is no deformity, no midline tenderness, no CVA tenderness. SKIN: no rashes and no bruising UPPER EXTREMITIES: upper extremities are grossly normal. LOWER EXTREMITIES: No pitting edema. NEURO EXAM: Normal sensorium, cranial nerves II-XII grossly intact, normal speech, no gross weakness of arms, no gross weakness of legs. PSYCH: Flat affect. Poor eye contact. Admits to suicidal ideation with a plan to stab herself but notes she made the statement because she went to get out of the house not because she was going to kill herself. Medical Decision & Procedures Laboratory Results 08/30/17 12:41 Red Blood Count 4.84, Mean Corpuscular Volume 87.8, Mean Corpuscular Hemoglobin 28.9, Mean Corpuscular Hemoglobin Concent 32.9, Mean Platelet Volume 10.7, Neutrophils (%) (Auto) 69.3, Lymphocytes (%) (Auto) 23.5, Monocytes (%) (Auto) 6.3, Eosinophils (%) (Auto) 0.5, Basophils (%) (Auto) 0.2, Neutrophils # (Auto) 8.36, Lymphocytes # (Auto) 2.84, Monocytes # (Auto) 0.76, Eosinophils # (Auto) 0.06, Basophils # (Auto) 0.02 08/30/17 12:41 Test 08/30/17 12:00 08/30/17 12:41 08/30/17 13:41 Urine Color DK YELLOW Urine Appearance CLEAR (CLEAR) Urine pH 6.5 (4.5-7.5) Urine Specific [place] 1.018 (1.000-1.030) Urine Protein NEG (NEG) Urine Glucose (UA) NEG (NEG) Urine Ketones NEG (NEG) Urine Occult Blood NEG (NEG) Urine Nitrite NEG (NEG) Urine Bilirubin NEG (NEG) Urine Urobilinogen NEG (NEG) Urine Leukocyte Esterase SMALL (NEG) Urine WBC (Auto) 1-5 /hpf (0-5) Urine RBC (Auto) 10-30 /hpf (0-4) Urine Hyaline Casts (Auto) 1-5 /lpf (0-5) Urine Epithelial Cells (Auto) >30 /lpf (0-5) Urine Bacteria (Auto) 1+ (NEG) Urine Opiates Screen NEG (NEG) Urine Methadone, Qualitative NEG (NEG) Urine Barbiturates NEG (NEG) Urine Phencyclidine (PCP) Level NEG (NEG) Ur Amphetamine/Methamphetamine NEG (NEG) MDMA (Ecstasy) Screen NEG (NEG) Urine Benzodiazepines Screen NEG (NEG) Urine Cocaine Metabolite NEG (NEG) Urine Marijuana (THC) NEG (NEG) White Blood Count 12.07 K/uL (4.8-10.8) Red Blood Count 4.84 M/uL (4.2-5.4) Hemoglobin 14.0 g/dL (12.0-16.0) Hematocrit 42.5 % (37-47) Mean Corpuscular Volume 87.8 fL (80-100) Mean Corpuscular Hemoglobin 28.9 pg (25-34) Mean Corpuscular Hemoglobin Concent 32.9 g/dl (32-36) Platelet Count 273 K/uL (130-400) Mean Platelet Volume 10.7 fL (7.4-10.4) Neutrophils (%) (Auto) 69.3 % Lymphocytes (%) (Auto) 23.5 % Monocytes (%) (Auto) 6.3 % Eosinophils (%) (Auto) 0.5 % Basophils (%) (Auto) 0.2 % Neutrophils # (Auto) 8.36 K/uL (1.4-6.5) Lymphocytes # (Auto) 2.84 K/uL (1.2-3.4) Monocytes # (Auto) 0.76 K/uL (0.11-0.59) Eosinophils # (Auto) 0.06 K/uL (0-0.5) Basophils # (Auto) 0.02 K/uL (0-0.2) RDW Standard Deviation 40.7 fL (36.4-46.3) RDW Coefficient of Variation 12.7 % (11.5-14.5) Immature Granulocyte % (Auto) 0.2 % Immature Granulocyte # (Auto) 0.03 K/uL (0.00-0.02) Anion Gap 8.0 mmol/L (3-11) Est Creatinine Clear Calc Drug Dose 122.3 ml/min Estimated GFR () 143.6 Estimated GFR (Non- 123.9 BUN/Creatinine Ratio 14.6 (10-20) Calcium Level 9.6 mg/dl (8.5-10.1) Total Bilirubin 0.2 mg/dl (0.2-1) Direct Bilirubin < 0.1 mg/dl (0-0.2) Aspartate Amino Transf (AST/SGOT) 26 U/L (15-37) Alanine Aminotransferase (ALT/SGPT) 49 U/L (12-78) Alkaline Phosphatase 82 U/L (45-117) Total Protein 8.0 gm/dl (6.4-8.2) Albumin 4.1 gm/dl (3.4-5.0) Thyroid Stimulating Hormone (TSH) 0.342 uIu/ml (0.300-4.500) Ethyl Alcohol mg/dL < 3.0 mg/dl (0-3) Laboratory results per my review. ED Course ED COURSE: Vital signs were reviewed and showed normal vitals The patients medical record was reviewed The above diagnostic studies were performed and reviewed. ED treatments and interventions as stated above. 1153: The patient was evaluated in room A6. A complete history and physical examination was performed. 1408: Upon reevaluation, I had a long conversation with the patient's mother, and she feels that the patient is not a danger to herself.I discussed my findings with the patient and her mother and they understand and agree with the treatment plan. Based on the patients age, coexisting illnesses, exam and lab findings the decision to treat as an outpatient was made. The patient remained stable while under my care. The patient appeared well at the time of discharge. Medical Decision Differential diagnosis: Etiologies such as mood disorder, infection, hypoglycemia, electrolyte abnormalities, cardiac sources, intracerebral event, toxicologic, neurologic, as well as others were entertained. Patient is a 22-year-old female who presents to ER with mom who has an intellectual disability. Patient ate a suicidal statement with a plan to establish herself. Patient notes she stated this because she wanted to get out of her house. She states that she was not going to stab herself and would not do that. Mom agrees with this. I am slightly skeptical. She was evaluated by our psychiatric transitional care manager. Patient is a low risk on the suicide assessment. CBC all BMP, LFTs urine tox was unremarkable. Extensive conversation at bedside. Mom talked with and they're both in agreement with taking the patient home as they do not believe that she is a danger to herself. The reason why mom brought her in is because of these anger outburst as opposed to the suicidal statements which she apparently makes all the time. After much discussion I did not feel it was reasonable to 302 her. Follow-up with psychiatry tomorrow and if things are not improving she'll return for admission as both the patient, mother and father do not want her to stay. Discussed with Pt concerning signs and symptoms to watch out for. Pt was instructed to follow up with their PCP and discussed with the patient their option to return to the ED at anytime for persistent or worsening symptoms. The appropriate anticipatory guidance and out-patient management, including indications for return to the emergency department, were explained at length to the patient and understood. Medication Reconcilliation Current Medication List: was personally reviewed by me Blood Pressure Screening Patient's blood pressure: Normal blood pressure Impression Primary Impression: Outbursts of anger Additional Impression: Depression Scribe Attestation The scribe's documentation has been prepared under my direction and personally reviewed by me in its entirety. I confirm that the note above accurately reflects all work, treatment, procedures, and medical decision making performed by me. Departure Information Dispostion Home / Self-Care Referrals Stephenie Griffin MD (PCP) Forms HOME CARE DOCUMENTATION FORM, IMPORTANT VISIT INFORMATION Patient Instructions Affective Mood Disorder, ED Contract, No Harm, ED Depression, My [facility], Suicide Warning Signs What Do Additional Instructions Please follow up with your psychiatrist tomorrow. Any statements of suicidal ideations or recurrence of anger outburst please return immediately to the ER. Please remove all medication, guns and sharp objects. Please lock them away from the patient. Problem Qualifiers Additional Impression: Depression Depression Type: unspecified Qualified Codes: F32.9 - Major depressive disorder, single episode, unspecified
== END 2017-08-30 14:47 | disposition home or self-care (01) ==
LOC: C.EDB 11:31 → C.EDA 14:47
DX: R45.4 Irritability and anger (principal); F32.9 Major depressive disorder, single episode, unspecified; F20.9 Schizophrenia, unspecified; F41.9 Anxiety disorder, unspecified; Z79.84 Long term (current) use of oral hypoglycemic drugs; Z87.74 Personal history of (corrected) congenital malformations of heart and circulatory system; Z82.49 Family history of ischemic heart disease and other diseases of the circulatory system

== ENCOUNTER → 2017-10-14 | Outpatient (CLI) | payer OTHER ==
[~2017-10-14] MED LIST changes: +ASEN1SUB PO; -ATV/1 PO; -CHLO1TAB15 PO; -CHLO50TA6 PO; +TEMA15CA4 PO
--- NOTE | 2017-10-14 17:04 | EEG Procedure Note ---
EEG Procedure Note Date of Service Oct 14, 2017. Start / End Times Start Time: 10:31 AM End Time: 10:51 AM Referring Physician GREY Lambert History This is a 22-year-old female with episodes of decreased responsiveness. EEG for further evaluation of possible seizure etiology. Home Medication List Scheduled Albuterol Hfa (Ventolin Hfa), 2 PUFFS INH Q4 Asenapine Maleate (Saphris), 2.5 MG PO BID Metformin Hcl (Glucophage), 500 MG PO BID Oxcarbazepine (Trileptal), 300 MG PO BID Oxcarbazepine (Trileptal), 600 MG PO HS Polyethylene (Miralax), 17 GM PO DAILY Sumatriptan Succinate (Imitrex), 1 TAB PO UD Temazepam (Restoril), 7.5 MG PO BID Verapamil (Calan), 120 MG PO DAILY Description This is a 21 electrode EEG with a single channel dedicated to limited EKG. The electrodes were placed in accordance with the International 10-20 system. At the start of the recording the patient was in an awake state. Background was well organized and composed of symmetric mixed alpha and beta frequencies. There was intermittent generalized delta slowing. There was a symmetric well- formed moderate amplitude8-9Hz posterior dominant rhythm that was reactive to eye opening and closure. Hyperventilation was not done. Intermittent photic stimulation at various frequencies produced no abnormalities. Drowsiness was indicated by slowing of the background rhythm and loss of muscle artifact. There was no stage II sleep transients. Interpretation This is a normal awake and drowsy routine EEG. There was no electrographic seizures or epileptiform discharges. Clinical Correlation A normal EEG does not rule out epilepsy if there is a strong clinical suspicion. Intermittent generalized delta slowing can be seen in the setting of drowsy state and was nonspecific.
== END | disposition home or self-care (01) ==
LOC: C.NEUR 10:00
PROVIDERS: ATTEND Internal Medicine
DX: R41.89 Other symptoms and signs involving cognitive functions and awareness (principal)

== ENCOUNTER → 2017-11-11 | Outpatient (CLI) | payer OTHER ==
[2017-11-11 16:33] LABS: BASO % 0.1 %; BASO ABS # 0.02 K/uL (0-0.2); EOS % 0.3 %; EOS ABS # 0.04 K/uL (0-0.5); HEMATOCRIT 41.5 % (37-47); HEMOGLOBIN 13.7 g/dL (12.0-16.0); IG# 0.04 K/uL (0.00-0.02); LYMPH % 17.4 %; LYMPH ABS # 2.77 K/uL (1.2-3.4); MEAN CELL VOLUME 87.9 fL (80-100); MEAN PLATELET VOLUME 11.2 fL (7.4-10.4); MONO % 4.5 %; MONO ABS # 0.72 K/uL (0.11-0.59); NEUT % 77.4 %; NEUT ABS # 12.36 K/uL (1.4-6.5); PLATELET COUNT 318 K/uL (130-400); RED CELL DISTRIBUTION WIDTH CV 13.4 % (11.5-14.5); RED CELL DISTRIBUTION WIDTH SD 43.4 fL (36.4-46.3); WHITE BLOOD COUNT 15.95 K/uL (4.8-10.8)
[2017-11-11 17:22] LABS: ALBUMIN 3.9 gm/dl (3.4-5.0); ALT/SGPT 24 U/L (12-78); AST/SGOT 13 U/L (15-37); BLOOD UREA NITROGEN 13 mg/dl (7-18); CARBON DIOXIDE 27 mmol/L (21-32); CREATININE 0.63 mg/dl (0.60-1.20); GLUCOSE 115 mg/dl (70-99); POTASSIUM 3.6 mmol/L (3.5-5.1); SODIUM 137 mmol/L (136-145)
[2017-11-11 17:32] LABS: ALKALINE PHOSPHATASE 71 U/L (45-117); TOTAL PROTEIN 7.8 gm/dl (6.4-8.2)
== END | disposition home or self-care (01) ==
LOC: C.LAB1850 15:27
PROVIDERS: ATTEND Physician Assistant
DX: G43.109 Migraine with aura, not intractable, without status migrainosus (principal); R42 Dizziness and giddiness; G44.209 Tension-type headache, unspecified, not intractable; R27.0 Ataxia, unspecified; R41.89 Other symptoms and signs involving cognitive functions and awareness

== ENCOUNTER → 2017-11-26 | Outpatient (CLI) | payer OTHER ==
[2017-11-26 12:16] LABS: BASO % 0.2 %; BASO ABS # 0.02 K/uL (0-0.2); EOS % 0.2 %; EOS ABS # 0.02 K/uL (0-0.5); HEMATOCRIT 42.9 % (37-47); HEMOGLOBIN 13.8 g/dL (12.0-16.0); IG# 0.03 K/uL (0.00-0.02); LYMPH % 18.1 %; LYMPH ABS # 2.03 K/uL (1.2-3.4); MEAN CORPUSCULAR HEMOGLOBIN 28.6 pg (25-34); MEAN CORPUSCULAR HGB CONC 32.2 g/dl (32-36); MEAN PLATELET VOLUME 11.1 fL (7.4-10.4); MONO % 5.8 %; MONO ABS # 0.65 K/uL (0.11-0.59); NEUT % 75.4 %; NEUT ABS # 8.48 K/uL (1.4-6.5); PLATELET COUNT 292 K/uL (130-400); RED CELL DISTRIBUTION WIDTH CV 13.6 % (11.5-14.5); RED CELL DISTRIBUTION WIDTH SD 44.4 fL (36.4-46.3); WHITE BLOOD COUNT 11.23 K/uL (4.8-10.8)
[2017-11-26 12:22] LABS: ALT/SGPT 21 U/L (12-78); BLOOD UREA NITROGEN 11 mg/dl (7-18); CALCIUM 8.9 mg/dl (8.5-10.1); CARBON DIOXIDE 27 mmol/L (21-32); CHOLESTEROL 159 mg/dl (0-200); CREATININE 0.59 mg/dl (0.60-1.20); GLUCOSE 99 mg/dl (70-99); POTASSIUM 4.3 mmol/L (3.5-5.1); SODIUM 139 mmol/L (136-145)
[2017-11-26 12:23] LABS: LDL CHOLESTEROL CALCULATED 91 mg/dl
[2017-11-26 12:37] LABS: HEMOGLOBIN A1C 5.7 % (4.5-5.6)
== END | disposition home or self-care (01) ==
LOC: C.LAB1850 09:36
PROVIDERS: ATTEND Physician Assistant
DX: E11.9 Type 2 diabetes mellitus without complications (principal); G43.109 Migraine with aura, not intractable, without status migrainosus

== ENCOUNTER → 2018-04-15 | Outpatient (CLI) | payer OTHER ==
[2018-04-15 12:34] LABS: BLOOD UREA NITROGEN 12 mg/dl (7-18); CALCIUM 8.8 mg/dl (8.5-10.1); CARBON DIOXIDE 30 mmol/L (21-32); CREATININE 0.63 mg/dl (0.60-1.20); GLUCOSE 69 mg/dl (70-99); POTASSIUM 4.2 mmol/L (3.5-5.1); SODIUM 140 mmol/L (136-145)
[2018-04-15 12:38] LABS: HEMOGLOBIN A1C 5.5 % (4.5-5.6)
== END | disposition home or self-care (01) ==
LOC: C.LAB1850 10:46
PROVIDERS: ATTEND Family Medicine
DX: Z01.419 Encounter for gynecological examination (general) (routine) without abnormal findings (principal)

== ENCOUNTER 2018-05-08 12:47 | Emergency (ER) | payer OTHER ==
[~2018-05-08] VITALS: Ht 154.9 cm; Wt 65.5 kg
[2018-05-08 12:51] VITALS: TEMP 36.7; Ht 154.9 cm; Wt 65.5 kg
[2018-05-08] MEDS ORDERED: SODIUM CHLORIDE 0.9% 1000ML 1,000 ML IV STA (13:09)
[2018-05-08] MEDS ORDERED: KETOROLAC TROMETHAMINE 30 MG/ML VIAL IV STA (13:09)
[2018-05-08] MEDS ORDERED: ONDANSETRON INJ 2 MG/ML 2 ML VIAL IV STA (13:09)
[2018-05-08 13:21] LABS: BASO % 0.2 %; BASO ABS # 0.02 K/uL (0-0.2); EOS % 0.2 %; EOS ABS # 0.02 K/uL (0-0.5); HEMATOCRIT 42.3 % (37-47); HEMOGLOBIN 13.9 g/dL (12.0-16.0); IG# 0.02 K/uL (0.00-0.02); LYMPH % 17.7 %; LYMPH ABS # 1.76 K/uL (1.2-3.4); MEAN CELL VOLUME 88.7 fL (80-100); MEAN CORPUSCULAR HEMOGLOBIN 29.1 pg (25-34); MEAN CORPUSCULAR HGB CONC 32.9 g/dl (32-36); MEAN PLATELET VOLUME 10.5 fL (7.4-10.4); MONO % 7.2 %; MONO ABS # 0.72 K/uL (0.11-0.59); NEUT % 74.5 %; PLATELET COUNT 282 K/uL (130-400); RED CELL DISTRIBUTION WIDTH CV 12.8 % (11.5-14.5); RED CELL DISTRIBUTION WIDTH SD 41.5 fL (36.4-46.3); WHITE BLOOD COUNT 9.94 K/uL (4.8-10.8)
[2018-05-08] MEDS ORDERED: OPTIRAY 320 IV PRN (13:30)
--- NOTE | 2018-05-08 13:38 | EMERGENCY ROOM VISIT NOTE ---
ED Visit Note First contact with patient: 12:58 CHIEF COMPLAINT: Generalized abdominal pain, nausea HISTORY OF PRESENTING ILLNESS: This is a 23-year-old female with past medical history significant for schizophrenia/schizoaffective disorder, depression, and type 2 diabetes on oral medications who presents to the emergency department today with complaint of severe generalized abdominal pain. She states the abdominal pain started about 1 week ago and has been off and on, but became very severe today, father states she was doubled over and screaming in pain, which prompted them to come to the emergency department. She states the pain feels like a throbbing and pressure across the middle of her abdomen, intensity seems to come and go, but states there is a constant dull throbbing, currently rates as 8/10. She took some ibuprofen this morning which did seem to help her symptoms. She has associated nausea and felt like she might vomit, but denies any vomiting. She denies diarrhea or constipation, and states she moved her bowels normally today. She denies any fevers or chills. She denies any chest pain, shortness of breath, dizziness, syncope, back pain, dysuria or urinary frequency, or unusual rash. She states her last menstrual period started on 8/ 3 and lasted 4 days, she states her pain started with her. And she often has bad cramps with her period, however she states this is unusual and worse pain than she has ever had. REVIEW OF SYSTEMS: A complete 10 point review of systems was reviewed with the patient with pertinent positives and negatives as per history of present illness. All else were negative. PAST MEDICAL HISTORY: Reviewed in chart, see problem list below. SOCIAL HISTORY: Lives at home with family. She denies tobacco use. ALLERGIES: Reviewed in chart, see below. PHYSICAL EXAM: CONSTITUTIONAL: Pleasant and cooperative. No acute distress. Mildly dehydrated , but otherwise well appearing and well nourished. HEENT: Normocephalic, atraumatic. Pupils equal, round and reactive to light, EOMI. TMs normal. Pharynx normal. Tacky mucous membranes. NECK: Supple, full active range of motion without discomfort. RESPIRATORY: Clear to auscultation bilaterally with no wheezing, crackles, rhonchi or stridor. Equal expansion bilaterally. CARDIOVASCULAR: Regular rate and rhythm with no murmurs, rubs or gallops. Normal peripheral perfusion. No edema. GASTROINTESTINAL: Diffusely tender throughout the abdomen, no rebound tenderness or guarding. Soft, nondistended. No palpable masses or HSM. Bowel sounds present in all quadrants. No CVA tenderness bilaterally. MUSCULOSKELETAL: Full range of motion of all joints without discomfort. INTEGUMENTARY: No rash or other significant dermatologic conditions noted. NEUROLOGIC: Alert and oriented X 4 with normal affect. Normal strength and sensation in all 4 extremities. No focal neurologic deficits noted. Normal speech. Normal gait observed. ED COURSE AND MEDICAL DECISION MAKING: CC: Patient presenting with complaint of abdominal pain, nausea DIFFERENTIAL DIAGNOSIS: Includes, but not limited to Appendicitis, cholecystitis, cholelithiasis, pancreatitis, GERD, gastritis, gastroenteritis, PUD, ectopic , ovarian torsion, ovarian cyst, constipation, dysmenorrhea, endometriosis, among others. INTERPRETATION OF LABS: No leukocytosis, no anemia, normal platelets, no significant electrolyte abnormalities, normal renal function, elevated liver transaminases, liver enzymes are otherwise normal. Normal lipase. UA negative for infection. Urine negative. IMAGING: CT SCAN OF THE ABDOMEN AND PELVIS WITH IV CONTRAST CLINICAL HISTORY: Generalized abdominal pain. COMPARISON STUDY: No priors. TECHNIQUE: Following the IV administration of 93 cc of Optiray 320, CT scan of the abdomen and pelvis is performed from the lung bases to the proximal femora. Images are reviewed in the axial, sagittal, and coronal planes. IV contrast was administered without complication. A dose lowering technique was utilized adhering to the principles of ALARA. CT DOSE: 286.38 mGy.cm FINDINGS: Lung bases: The heart is normal in size and without pericardial effusion. The lung bases are clear. Liver: The contrast-enhanced liver is normal in size, contour, and attenuation. There is no intrahepatic biliary ductal dilatation. The hepatic veins and portal veins are patent. Gallbladder: Unremarkable. Spleen: Normal in size and attenuation. Pancreas: Unremarkable. Adrenal glands: Unremarkable. Kidneys: The contrast enhanced kidneys are normal in size and without hydronephrosis. The kidneys enhance symmetrically. Abdominal vasculature: The abdominal aorta is normal in course and caliber. Bowel: There is mild to moderate colonic fecal retention. No bowel obstruction is seen. The appendix is well-visualized and normal. Peritoneum: There is no intraperitoneal free air or abdominal ascites. Lymphadenopathy: None. Pelvic viscera: The bladder, uterus, and adnexa are normal as visualized. There are small bilateral ovarian follicles. Skeletal structures: No lytic or blastic lesions are seen. 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 No anterolisthesis is seen at L5-S1. IMPRESSION: There are no acute infectious or inflammatory findings in the abdomen or pelvis. MEDICATION RECONCILIATION: I attest that I have personally reviewed the patient 's current medication list. INITIAL VITAL SIGNS REVIEW: I reviewed the patient's initial vital signs and interpret them as follows: T: Afebrile; BP: Normotensive; HR: Mildly tachycardic; RR: Within normal limits; Pulse Ox: Within normal limits on room air. Blood pressure screening: The patient was found to have normal blood pressure on screening and does not require follow-up for repeat blood pressure check. SUMMARY: Patient was evaluated at bedside, history and physical exam performed. Patient is alert and oriented, in no acute distress, resting calmly in the stretcher. Patient's abdomen is soft and nondistended. She does complain of tenderness throughout the entire abdomen to palpation, but no rebound tenderness or guarding, no acute abdomen. Review of the patient's chart was performed, she has not had any previous abdominal imaging in the past at our institution, and reports only an ultrasound in the past. Orders were placed at bedside for labs, UA and urine , IV fluids for hydration, IV Zofran for nausea, IV Toradol for pain, CT abdomen/pelvis with IV contrast to evaluate for abdominal pain. Patient discussed with Dr. Gagnon, who agrees with my assessment and plan. Labs and imaging reviewed as above. Elevated liver transaminases, labs are otherwise unremarkable. CT is negative for any acute pathology. Patient reassessed multiple times throughout ED stay, she has remained stable, tachycardia improved with IV fluids, and her pain is improved after the IV Toradol. Patient was updated on all results and plan for discharge, she was encouraged to follow closely with her PCP. Patient was also given strict return precautions should her symptoms worsen, she verbalized understanding. Patient was discharged home in stable condition and ambulatory. (Radha Maravilla CRNP) First contact with patient: 12:58 (Andrae Gagnon M.D.) Problem List Medical Problems: (1) Atrial septal defect Status: Resolved (2) Depression Status: Chronic (3) Schizoaffective disorder Status: Chronic (4) Schizophrenia Status: Chronic (Andrae Gagnon M.D.) Current/Historical Medications Scheduled Albuterol Hfa (Ventolin Hfa), 2 PUFFS INH Q4 Asenapine Maleate (Saphris), 2.5 MG PO BID Lorazepam (Ativan), 0.5 MG PO UD Metformin Hcl (Glucophage), 500 MG PO DAILY Oxcarbazepine (Trileptal), 300 MG PO TID Polyethylene (Miralax), 17 GM PO DAILY Sumatriptan Succinate (Imitrex), 1 TAB PO UD Allergies Coded Allergies: Chlorpromazine (Unverified Allergy, Severe, BREATHING,CHEST PAINS,LEG PAIN , 05/08/18) Azithromycin (Unverified Allergy, Unknown, unknown, 05/08/18) Carbamazepine (Verified Allergy, Unknown, 05/08/18) Cefaclor (Verified Allergy, Unknown, 05/08/18) Sulfisoxazole (Verified Allergy, Unknown, 05/08/18) Vital Signs Date Time Temp Pulse Resp B/P (MAP) Pulse Ox O2 Delivery O2 Flow Rate FiO2 05/08/18 16:34 68 16 110/82 98 05/08/18 14:50 84 18 108/64 100 Room Air 05/08/18 12:51 36.7 92 18 135/81 99 Room Air (Andrae Gagnon M.D.) Laboratory Results 05/08/18 13:03 Red Blood Count 4.77, Mean Corpuscular Volume 88.7, Mean Corpuscular Hemoglobin 29.1, Mean Corpuscular Hemoglobin Concent 32.9, Mean Platelet Volume 10.5, Neutrophils (%) (Auto) 74.5, Lymphocytes (%) (Auto) 17.7, Monocytes (%) (Auto) 7.2, Eosinophils (%) (Auto) 0.2, Basophils (%) (Auto) 0.2, Neutrophils # (Auto) 7.40, Lymphocytes # (Auto) 1.76, Monocytes # (Auto) 0.72, Eosinophils # (Auto) 0.02, Basophils # (Auto) 0.02 05/08/18 13:03 Test 05/08/18 13:03 05/08/18 13:24 White Blood Count 9.94 K/uL (4.8-10.8) Red Blood Count 4.77 M/uL (4.2-5.4) Hemoglobin 13.9 g/dL (12.0-16.0) Hematocrit 42.3 % (37-47) Mean Corpuscular Volume 88.7 fL (80-100) Mean Corpuscular Hemoglobin 29.1 pg (25-34) Mean Corpuscular Hemoglobin Concent 32.9 g/dl (32-36) Platelet Count 282 K/uL (130-400) Mean Platelet Volume 10.5 fL (7.4-10.4) Neutrophils (%) (Auto) 74.5 % Lymphocytes (%) (Auto) 17.7 % Monocytes (%) (Auto) 7.2 % Eosinophils (%) (Auto) 0.2 % Basophils (%) (Auto) 0.2 % Neutrophils # (Auto) 7.40 K/uL (1.4-6.5) Lymphocytes # (Auto) 1.76 K/uL (1.2-3.4) Monocytes # (Auto) 0.72 K/uL (0.11-0.59) Eosinophils # (Auto) 0.02 K/uL (0-0.5) Basophils # (Auto) 0.02 K/uL (0-0.2) RDW Standard Deviation 41.5 fL (36.4-46.3) RDW Coefficient of Variation 12.8 % (11.5-14.5) Immature Granulocyte % (Auto) 0.2 % Immature Granulocyte # (Auto) 0.02 K/uL (0.00-0.02) Anion Gap 7.0 mmol/L (3-11) Est Creatinine Clear Calc Drug Dose 101.5 ml/min Estimated GFR () 131.4 Estimated GFR (Non- 113.4 BUN/Creatinine Ratio 13.5 (10-20) Calcium Level 8.9 mg/dl (8.5-10.1) Total Bilirubin 0.3 mg/dl (0.2-1) Direct Bilirubin 0.1 mg/dl (0-0.2) Aspartate Amino Transf (AST/SGOT) 174 U/L (15-37) Alanine Aminotransferase (ALT/SGPT) 99 U/L (12-78) Alkaline Phosphatase 101 U/L (45-117) Total Protein 7.7 gm/dl (6.4-8.2) Albumin 4.0 gm/dl (3.4-5.0) Lipase 345 U/L (73-393) Urine Color DK YELLOW Urine Appearance CLOUDY (CLEAR) Urine pH 6.5 (4.5-7.5) Urine Specific [place] 1.022 (1.000-1.030) Urine Protein NEG (NEG) Urine Glucose (UA) NEG (NEG) Urine Ketones TRACE (NEG) Urine Occult Blood NEG (NEG) Urine Nitrite NEG (NEG) Urine Bilirubin NEG (NEG) Urine Urobilinogen NEG (NEG) Urine Leukocyte Esterase NEG (NEG) Urine WBC (Auto) 1-5 /hpf (0-5) Urine RBC (Auto) 0-4 /hpf (0-4) Urine Hyaline Casts (Auto) 1-5 /lpf (0-5) Urine Epithelial Cells (Auto) >30 /lpf (0-5) Urine Bacteria (Auto) NEG (NEG) Urine Test NEG (NEG) (Andrae Gagnon M.D.) Medications Administered Medications (Trade) Dose Ordered Sig/[place] Route Start Time Stop Time Status Last Admin Dose Admin Sodium Chloride 1,000 ml @ 999 mls/hr Q1H1M STAT IV 05/08/18 13:09 05/08/18 14:09 DC 05/08/18 13:31 999 MLS/HR Ondansetron HCl (Zofran Inj) 4 mg NOW STAT IV 05/08/18 13:09 05/08/18 13:14 DC 05/08/18 13:31 4 MG Ketorolac Tromethamine (Toradol Inj) 15 mg NOW STAT IV 05/08/18 13:09 05/08/18 13:14 DC 05/08/18 13:31 15 MG (Andrae Gagnon M.D.) Departure Information Impression Primary Impression: Generalized abdominal pain Dispostion Home / Self-Care Condition GOOD Referrals Stephenie Griffin MD (PCP) Patient Instructions ED Abdominal Pain Unkn Cause, My [facility] Additional Instructions You have been evaluated and treated in the Emergency Department today for your abdominal pain. Laboratory results and imaging studies have ruled out any emergent causes for your symptoms which would warrant admission or surgery. Your liver enzymes (AST and ALT) were found to be elevated today on your blood work. You should have repeat liver enzyme blood work performed by her primary care provider in the next 2 weeks. For pain control you may take regular strength (200 mg/tab) Advil (ibuprofen) 3 tabs every 6-8 hours as needed. Do not exceed a dose of 2400 mg per day. Avoid taking any Tylenol or medications containing acetaminophen until you have your liver enzymes rechecked. Drink plenty of fluids to stay well hydrated. Please follow-up with your Primary Care Provider few days for further evaluation of your abdominal pain. Return to the emergency department for severe worsening abdominal pain, worsening nausea/vomiting, vomiting blood, blood in your stool or urine, fevers > 101, severe dizziness or passing out, or any other concerns.
[2018-05-08 13:40] LABS: CALCIUM 8.9 mg/dl (8.5-10.1); CREATININE 0.74 mg/dl (0.60-1.20); TOTAL PROTEIN 7.7 gm/dl (6.4-8.2)
[2018-05-08] MEDS ORDERED: LORA-741 PO (13:51)
--- NOTE | 2018-05-08 15:36 | DIAGNOSTIC IMAGING REPORT ---
CT SCAN OF THE ABDOMEN AND PELVIS WITH IV CONTRAST CLINICAL HISTORY: Generalized abdominal pain. COMPARISON STUDY: No priors. TECHNIQUE: Following the IV administration of 93 cc of Optiray 320, CT scan of the abdomen and pelvis is performed from the lung bases to the proximal femora. Images are reviewed in the axial, sagittal, and coronal planes. IV contrast was administered without complication. A dose lowering technique was utilized adhering to the principles of ALARA. CT DOSE: 286.38 mGy.cm FINDINGS: Lung bases: The heart is normal in size and without pericardial effusion. The lung bases are clear. Liver: The contrast-enhanced liver is normal in size, contour, and attenuation. There is no intrahepatic biliary ductal dilatation. The hepatic veins and portal veins are patent. Gallbladder: Unremarkable. Spleen: Normal in size and attenuation. Pancreas: Unremarkable. Adrenal glands: Unremarkable. Kidneys: The contrast enhanced kidneys are normal in size and without hydronephrosis. The kidneys enhance symmetrically. Abdominal vasculature: The abdominal aorta is normal in course and caliber. Bowel: There is mild to moderate colonic fecal retention. No bowel obstruction is seen. The appendix is well-visualized and normal. Peritoneum: There is no intraperitoneal free air or abdominal ascites. Lymphadenopathy: None. Pelvic viscera: The bladder, uterus, and adnexa are normal as visualized. There are small bilateral ovarian follicles. Skeletal structures: No lytic or blastic lesions are seen. 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 No anterolisthesis is seen at L5-S1. IMPRESSION: There are no acute infectious or inflammatory findings in the abdomen or pelvis. Electronically signed by: Reji Meredith M.D. 05/08/2018 3:35 PM Dictated Date/Time: 05/08/2018 3:31 PM
--- NOTE | 2018-05-08 16:25 | EMERGENCY ROOM VISIT NOTE ---
ED Visit Note First contact with patient: 12:58 The patient was seen and examined by myself in conjunction with GREY Bell. I agree with the history, physical and findings as documented. Outpatient follow up for minimal LFT elevations. Please see the note for disposition and details.
[2018-05-08 16:34] VITALS: BP 110/82; PULSE 68; O2SAT 98
== END 2018-05-08 16:35 | disposition home or self-care (01) ==
LOC: C.EDB 12:48 → C.EDA 16:35
DX: R10.84 Generalized abdominal pain (principal); E11.65 Type 2 diabetes mellitus with hyperglycemia; R11.0 Nausea; E86.0 Dehydration; F32.9 Major depressive disorder, single episode, unspecified; F25.9 Schizoaffective disorder, unspecified; Z79.899 Other long term (current) drug therapy; Z79.84 Long term (current) use of oral hypoglycemic drugs; Z88.1 Allergy status to other antibiotic agents; Z88.8 Allergy status to other drugs, medicaments and biological substances; Z88.2 Allergy status to sulfonamides

== ENCOUNTER 2025-07-03 10:42 | Observation (INO) ==
--- NOTE | 2025-07-03 10:53 | Emergency Department Note ---
Impression & Plan Stroke-like symptoms, Headache, Blood glucose elevated ED Provider Note NAME: KEVIN ALAN AGE: 30 SEX: F : 1995 ARRIVES VIA: Ambulance INFORMANT: Patient ED PROVIDER(S): Johnnie Brody DO CHIEF COMPLAINT: Headache, left-sided weakness HPI: Patient is a 30-year-old female with a past medical history of occipital neuralgia, nystagmus, depression, schizophrenia, atrial septal defect, and migraines who presents to the ER for headache and left-sided weakness that started 30 minutes prior to arrival. She denies any change or loss of vision. No chest pain or shortness of breath. ADDITIONAL HISTORY OBTAINED: Per HPI Chronic Medical/Social Conditions Affecting Care: Per HPI PAST MEDICAL HISTORY:See Below PAST SURGICAL HISTORY:See Below FAMILY HISTORY:See Below SOCIAL HISTORY:See Below HOME MEDICATIONS:See Below ALLERGIES:See Below VITALS:See Below PHYSICAL EXAMINATION: GENERAL: Sitting up in bed, alert, well appearing, well nourished, no distress, non-toxic EYE EXAM: normal conjunctiva. PERRL and EOM's intact. OROPHARYNX: no exudate, no erythema, lips, buccal mucosa, and tongue normal and mucous membranes are moist NECK: supple, no nuchal rigidity, no adenopathy, non-tender LUNGS: Clear to auscultation. Normal chest wall mechanics HEART: no murmurs, S1 normal and S2 normal ABDOMEN: abdomen soft, non-tender, normo-active bowel sounds, no masses, no rebound or guarding. BACK: Back is symmetrical on inspection and there is no deformity, no midline tenderness, no CVA tenderness. SKIN: no rashes and no bruising UPPER EXTREMITIES: upper extremities are grossly normal. LOWER EXTREMITIES: No pitting edema. NEURO EXAM: Normal sensorium, cranial nerves II-XII intact, normal speech, no weakness of arms, no weakness of legs. No drift. Finger to nose intact. Gross sensation intact. MEDICAL DECISION MAKING: Patient is a 30-year-old female who presents ER for the above-stated complaint. IV was established blood work is obtained. Labs show no significant leukocytosis or anemia. INR unremarkable. BMP along with LFTs bilirubin and troponin was negative. CT of the head as well as angios of the head and neck were negative for any acute pathology. Did suggest an AVM. She had no focal deficit on my exam. Stroke alert was called. She was seen evaluated by telestroke and they recommended admission for further workup. Patient was given aspirin and TNK was not given as she had no deficits. Discussed with the hospitalist for further evaluation management treatment. Consults/Care Managements Discussions: Per [facility] Triage Nursing notes reviewed. Limited review of prior medical records performed Vital Signs: reviewed and remarkable for no significant abnormalities Differential diagnosis: Differential Diagnosis includes but is not limited to ischemic Stroke, hemorrhagic stroke, bells palsy, mass, neoplasm, migraine headache, seizure, subarachnoid hemorrhage, TIA, and transient global amnesia. ER treatment provided: See below Diagnostics interpreted by me include EKG and cardiac monitoring as listed below: -Cardiac Monitoring: An order was placed for continuous cardiac monitoring. The monitor shows a rate of 70 with sinus rhythm. -ECG: Sinus rhythm rate of 76 Normal axis No PVCs QTc 427 -Laboratory studies:Interpreted by me as stated above in MDM and shown below. Imaging studies: Xrays: As interpreted by me:none CTs show: CT of the head per my pleurae interpretation shows no obvious large bleed CT of the head including angios of the head and neck were negative Procedures:none Critical Care: None Past Med/Surg History Problem List (Updated 07/03/25 @ 14:26 by Johnnie Brody DO) Blood glucose elevated (Acute) Headache (Acute) Stroke-like symptoms (Acute) Early satiety Nausea Epigastric abdominal pain Bilateral occipital neuralgia Dermatitis due to food taken internally Mast cell disorder Food sensitivity with gastrointestinal symptoms Alternating exotropia Persistent headaches Gait disturbance Lab test negative for COVID-19 virus (Acute) Acid reflux Nystagmus Migraine headache Anxiety (Chronic) Asthma (Chronic) Classic migraine with aura (Chronic) Type 2 diabetes mellitus (Chronic) Schizophrenia (Chronic) Depression (Chronic) Medical History History of seizures as a child only one ~age 2, during illness at the time, medicated for a couple years, no further issues Schizophrenia Type 2 diabetes mellitus diet Classic migraine with aura hx Asthma hx, only flares illness>inh prn Anxiety and depression Acid reflux Acne vulgaris Ataxia Esotropia Outbursts of anger hx, no recent issues Suicidal ideation hx Surgical History S/P tympanic tube insertion H/O eye surgery 11/29/24, right eye H/O sinus surgery History of tonsillectomy and adenoidectomy H/O myringotomy as a baby Family History Mother Schizophrenia Diabetes Unknown No problems noted. Other Adopted Denies family history of Ovarian cancer Prostate cancer Myocardial infarction Breast cancer Colorectal cancer Social History Smoking Status: Never smoker Second Hand Exposure: No; Do You Dip or Chew Tobacco: No; Hx Alcohol Use: No Hx Substance Use: No Preferred Language: Spanish Communication Ability: Effective Visual Impairment: No Limitations Hearing Ability: Normal Prom Burn Off Operator Required: No Beliefs That Will Affect Care: None marital status: Single Current Living Situation: Parent Current Living Situation Comment: lives with mother current occupational status: employed current occupation: [employer]ning [employer] Feels Safe at Home: Yes Safety Concerns: Feels Safe At This Time and Afraid for Self Childhood Exposure to Second-Hand Smoke: No Diet: other and regular Diet Comment: headache diet caffeine: No Dental Care, Regularly: Yes Physical Activity Frequency: Daily Seatbelt Use: always Sunscreen Use: Yes Assistive Devices: None Allergies Allergies Allergy/AdvReac Type Severity Reaction Status Date / Time chlorpromazine Allergy Severe BREATHING,CHEST Verified 03/02/25 14:17 PAINS,LEG PAIN shellfish derived Allergy Severe Anaphylaxis Verified 03/02/25 14:17 Sulfa (Sulfonamide Allergy Mild Rash Verified 03/02/25 14:17 Antibiotics) azithromycin Allergy Unknown Unknown Verified 03/02/25 14:17 cefaclor Allergy Unknown Unknown Verified 03/02/25 14:17 sulfisoxazole Allergy Unknown Unknown Verified 03/02/25 14:17 topiramate [From Topamax] Allergy "Eyes Verified 03/02/25 14:17 shake" asenapine [From Saphris] AdvReac Verified 03/02/25 14:17 lasticaf eye drops Allergy Eyes get Uncoded 03/02/25 14:17 crusty and red prednisone Allergy Eye shaking Uncoded 03/02/25 14:17 Home Meds Home Medications Medication Instructions Recorded Confirmed albuterol sulfate 90 mcg/actuation 2 puffs inhalation QID PRN 04/05/19 07/03/25 aerosol inhaler (Ventolin HFA) Shortness Of Breath Or Wheezing riboflavin (vitamin B2) 400 mg 400 mg PO DAILY #30 tabs 05/10/19 07/03/25 tablet flaxseed oil 1,000 mg capsule 1,000 mg PO DAILY 06/01/19 07/03/25 omega-3 fatty acids 1,000 mg 1,000 mg PO DAILY 12/03/21 07/03/25 capsule sodium chloride 3 % nasal mist 2 spray intranasal .COMPLEX PRN 12/03/21 07/03/25 (Saline Nasal Mist) DRYNESS hydroxyzine HCl 10 mg tablet 10 mg PO TID PRN Anxiety 02/26/23 07/03/25 xanomeline 50 mg-trospium 20 mg 1 cap PO BID 12/23/24 07/03/25 capsule (Cobenfy) Previous Rx's Medication Instructions Recorded blood sugar diagnostic #50 ea 11/04/21 ondansetron 4 mg disintegrating 4 mg PO Q6H PRN nausea and 05/26/23 tablet vomiting #20 tabs lancets 30 gauge (OneTouch Delica #200 ea 08/14/23 Plus Lancet) epinephrine 0.3 mg/0.3 mL 0.3 mg (0.3 mL) IM Q15M PRN 08/27/23 injection, auto-injector anaphylaxis #2 ea blood-glucose meter (OneTouch #1 ea 07/01/24 Ultra2 Meter) atogepant 60 mg tablet (Qulipta) 60 mg PO DAILY #30 tabs 02/23/25 Results & Data (ED) Vital Signs Vital Signs - 24 hr 07/03/25 10:48 07/03/25 10:59 07/03/25 11:05 Temperature 36.6 C Temperature Source Oral Pulse Rate Pulse Rate [Apical] 101 H Pulse Rate from SpO2 Sensor Respiratory Rate 25 H Blood Pressure Blood Pressure [Right Arm] 143/96 H 145/108 H Blood Pressure Mean Blood Pressure Mean [Right Arm] 111 120 Blood Pressure Position [Right Arm] Semi-fowlers Semi-fowlers Pulse Oximetry 100 Oxygen Delivery Method Room Air Sepsis Recent Fever Within 48 Hours No Sepsis New/Unexplained Change in Mental Status N/A Sepsis Action Taken by Nursing No Action Required 07/03/25 11:15 07/03/25 11:20 07/03/25 11:27 Temperature Temperature Source Pulse Rate 97 H Pulse Rate [Apical] 88 Pulse Rate from SpO2 Sensor Respiratory Rate 16 Blood Pressure Blood Pressure [Right Arm] 141/100 H Blood Pressure Mean Blood Pressure Mean [Right Arm] 113 Blood Pressure Position [Right Arm] Pulse Oximetry 99 99 Oxygen Delivery Method Room Air Room Air Sepsis Recent Fever Within 48 Hours Sepsis New/Unexplained Change in Mental Status Sepsis Action Taken by Nursing 07/03/25 12:24 Temperature Temperature Source Pulse Rate 79 Pulse Rate [Apical] Pulse Rate from SpO2 Sensor 78 Respiratory Rate 13 Blood Pressure 129/69 Blood Pressure [Right Arm] Blood Pressure Mean 89 Blood Pressure Mean [Right Arm] Blood Pressure Position [Right Arm] Pulse Oximetry 99 Oxygen Delivery Method Room Air Sepsis Recent Fever Within 48 Hours Sepsis New/Unexplained Change in Mental Status Sepsis Action Taken by Nursing Laboratory Data 07/03/25 10:53 07/03/25 10:53 Lab Results 07/03/25 Range/Units 10:53 WBC 10.23 (4.8-10.8) K/ul RBC 5.05 (4.20-5.40) M/uL Hgb 14.7 (12.0-16.0) g/dl Hct 44.2 (37.0-47.0) % MCV 87.5 (80.0-100.0) fL MCH 29.1 (25.0-34.0) pg MCHC 33.3 (32.0-36.0) g/dL RDW Std Deviation 40.9 (36.4-46.3) fL RDW Coeff of Dayana 12.7 (11.5-14.5) % Plt Count 252 (130-400) K/uL MPV 11.1 (9.4-12.4) fL Immature Gran % (Auto) 0.3 % Neut % (Auto) 66.9 % Lymph % (Auto) 24.5 % Armstrong % (Auto) 6.9 % Eos % (Auto) 0.8 % Baso % (Auto) 0.6 % Neut # (Auto) 6.84 H (1.40-6.50) K/uL Lymph # (Auto) 2.51 (1.20-3.40) K/uL Armstrong # (Auto) 0.71 H (0.11-0.59) K/uL Eos # (Auto) 0.08 (0.00-0.50) K/uL Baso # (Auto) 0.06 (0.00-0.20) K/uL Immature Gran # (Auto) 0.03 (0.01-0.20) K/uL PT 9.6 (9.0-12.0) Seconds INR 0.9 (0.9-1.1) APTT 28 (21-31) Seconds PTT Ratio 1.0 Sodium 138 (136-145) mmol/L Potassium 4.1 (3.5-5.1) mmol/L Chloride 104 (98-107) mmol/L Carbon Dioxide 27 (21-32) mmol/L Anion Gap 7 (3-11) BUN 17 (6-23) mg/dl Creatinine 0.77 (0.6-1.2) mg/dl Est Cr Clr Drug Dosing 95.4 ml/min eGFR 105.70 BUN/Creatinine Ratio 22.1 H (10-20) Glucose 109 H (70-99(Fasting)) mg/dl Calcium 9.4 (8.6-10.3) mg/dl Magnesium 2.2 (1.7-2.4) mg/dl Total Bilirubin 0.4 (0.2-1.0) mg/dl AST 23 (13-39) U/L ALT 21 (7-52) U/L Alkaline Phosphatase 58 (34-104) U/L Troponin I High Sens 2.6 (0-14) pg/ml Total Protein 7.8 (6.0-8.3) gm/dl Albumin 4.8 (3.4-5.0) gm/dl Globulin 3.0 (2.5-4.0) gm/dl Albumin/Globulin Ratio 1.6 (0.9-2) Administered Medications Discontinued Medications Aspirin (Aspirin Chew 324 Mg) 324 mg PO NOW STA Stop: 07/03/25 12:23 Last Admin: 07/03/25 13:26 Dose: 324 mg Documented By: DEEPIKA Ioversol (Optiray 320 125ml) 112 ml IV ONCE ONE Stop: 07/03/25 10:59 Last Admin: 07/03/25 10:58 Dose: 112 ml Documented By: XIANG Imaging Data Radiologist's Impression: Head CT 07/03/25 10:47 CT head/brain wo con CLINICAL HISTORY: 30 years-old Female with neuro deficit, acute stroke suspected. Acute strokelike symptoms TECHNIQUE: Multiple axial CT images of the head were obtained without contrast. A dose lowering technique was utilized adhering to the principles of ALARA. COMPARISON: CTA head of same day FINDINGS: No acute intracranial hemorrhage, midline shift, intracranial mass, hydrocephalus, territorial ischemia or abnormal extra-axial collection. The calvarium is intact. The paranasal sinuses, mastoid air cells, and middle ear cavities are clear. IMPRESSION: No acute intracranial abnormality. ACT 112: Negative or not required by law. The above report was generated using voice recognition software. It may contain grammatical, syntax or spelling errors. Electronically signed by: Saud Levine M.D. 07/03/2025 11:45 AM Head CTA 07/03/25 10:47 CT angio head w con CLINICAL HISTORY: neuro deficit, acute stroke suspected. TECHNIQUE: Unenhanced axial CT scan of the brain is performed. Subsequently, following the IV administration of 112 cc of Optiray, CT angiogram of the brain was performed from the skull base to the vertex. Images are reviewed in the axial, sagittal, and coronal planes. 3-D MIPS images are created and assessed. IV contrast was administered without complication. All measurements were obtained according to NASCET criteria. A dose lowering technique was utilized adhering to the principles of ALARA. CT DOSE: 981 COMPARISON STUDY: Head CT earlier today FINDINGS: The distal internal carotid arteries are patent. Left vertebral artery is dominant and the diminutive distal right vertebral artery terminates in PICA, anatomic variant. Basilar artery is patent. Anterior, middle, and posterior cerebral arteries are patent bilaterally. There is a prominent serpiginous vessel at the anterior aspect of the right temporal lobe which may represent AVM. IMPRESSION: 1. No significant arterial narrowing or occlusion seen in the brain. 2. 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 ACT 112: Positive. There are findings on this exam that require communication between the performing entity and the patient following Patient Test Result Information Act ([place] Act 112) guidelines. The above report was generated using voice recognition software. It may contain grammatical, syntax or spelling errors. Electronically signed by: Siva Christianson M.D. 07/03/2025 11:21 AM Neck CTA 07/03/25 10:47 CT ANGIOGRAPHY OF THE NECK WITH CONTRAST CLINICAL HISTORY: neuro deficit, acute stroke suspected COMPARISON STUDY: No previous studies for comparison. Technique: CT angiography of the carotid and vertebral arteries was obtained using Optiray and 3D reconstruction on an independent workstation. NASCET criteria was utilized. Automated exposure control was utilized for the study. A dose lowering technique was utilized adhering to the principles of ALARA. CT DOSE: 980.66 mGy.cm Findings: Visualized lung apices are unremarkable. There is no cervical lymphadenopathy. There are no cervical spine effusions. 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 The bilateral common carotid, cervical internal carotid and vertebral arteries are patent. The left vertebral artery is dominant. There is no stenosis, aneurysm or dissection within the neck. CTA of the head will be reported separately. IMPRESSION: Unremarkable CTA of the neck. ACT 112: Negative or not required by law. Electronically signed by: Mil Shirley M.D. 07/03/2025 11:14 AM Discharge Plan Visit Data Chief Complaint: Stroke Alert Stated Complaint: WEAKNESS, MIGRAINE ED Provider: Johnnie Brody Discharge Problem: Stroke-like symptoms, Headache, Blood glucose elevated Condition: Fair Discharge Problem: Headache Qualifiers: Headache type: unspecified Headache chronicity pattern: unspecified pattern I ntractability: not intractable Qualified Code(s): R51.9 - Headache, unspecified
[2025-07-03] MEDS: OPTIRAY 320 125ml IV ONE (10:58)
--- NOTE | 2025-07-03 11:15 | CT Scan Report ---
CT ANGIOGRAPHY OF THE NECK WITH CONTRAST CLINICAL HISTORY: neuro deficit, acute stroke suspected COMPARISON STUDY: No previous studies for comparison. Technique: CT angiography of the carotid and vertebral arteries was obtained using Optiray and 3D rec onstruction on an independent workstation. NASCET criteria was utilized. Automated exposure control was utilized for the study. A dose lowering technique was utilized adhering to the principles of ALA RA. CT DOSE: 980.66 mGy.cm Findings: Visualized lung apices are unremarkable. There is no cervical lymphadenopathy. There are no cervical spine effusions. 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 The bilateral c ommon carotid, cervical internal carotid and vertebral arteries are patent. The left vertebral artery is dominant. There is no stenosis, aneurysm or dissection within the neck. CTA of the head will be r eported separately. IMPRESSION: Unremarkable CTA of the neck. ACT 112: Negative or not required by law. Electronically signed by: Mil Shirley M.D. 07/03/2025 11:14 AM
[2025-07-03 11:19] LABS: Hematocrit (blood only) 44.2 % (37.0-47.0); Hemoglobin 14.7 g/dl (12.0-16.0); Immature Granulocytes # (auto) 0.03 K/uL (0.01-0.20); Immature Granulocytes % (auto) 0.3 %; Mean Corpuscular Hemoglobin 29.1 pg (25.0-34.0); Mean Corpuscular Volume 87.5 fL (80.0-100.0); Platelet Count 252 K/uL (130-400); RDW Standard Deviation 40.9 fL (36.4-46.3); Red Blood Count 5.05 M/uL (4.20-5.40); White Blood Count 10.23 K/ul (4.8-10.8)
--- NOTE | 2025-07-03 11:23 | CT Scan Report ---
CT angio head w con CLINICAL HISTORY: neuro deficit, acute stroke suspected. TECHNIQUE: Unenhanced axial CT scan of the brain is performed. Subsequently, following the IV adminis tration of 112 cc of Optiray, CT angiogram of the brain was performed from the skull base to the vert ex. Images are reviewed in the axial, sagittal, and coronal planes. 3-D MIPS images are created and a ssessed. IV contrast was administered without complication. All measurements were obtained according to NASCET criteria. A dose lowering technique was utilized adhering to the principles of ALARA. CT DOSE: 981 COMPARISON STUDY: Head CT earlier today FINDINGS: The distal internal carotid arteries are patent. Left vertebral artery is dominant and the diminutive distal right vertebral artery terminates in PICA, anatomic variant. Basilar artery is hoyos nt. Anterior, middle, and posterior cerebral arteries are patent bilaterally. There is a prominent se rpiginous vessel at the anterior aspect of the right temporal lobe which may represent AVM. IMPRESSION: 1. No significant arterial narrowing or occlusion seen in the brain. 2. 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 ACT 112: Positive. There are findings on this exam that require communication between the performing entity and the patient following Patient Test Result Information Act [place] Act 112) guidelines. The above report was generated using voice recognition software. It may contain grammatical, syntax o r spelling errors. Electronically signed by: Siva Christianson M.D. 07/03/2025 11:21 AM
[2025-07-03 11:37] LABS: Alanine Aminotransferase 21.0 U/L (7-52); Albumin Globulin Ratio 1.6 (0.9-2); Albumin Level 4.8 gm/dl (3.4-5.0); Alkaline Phosphatase 58.0 U/L (34-104); Anion Gap 7.0 (3-11); Bilirubin,Total 0.4 mg/dl (0.2-1.0); Blood Urea Nitrogen 17.0 mg/dl (6-23); Calcium 9.4 mg/dl (8.6-10.3); Carbon Dioxide 27.0 mmol/L (21-32); Chloride 104.0 mmol/L (98-107); Creatinine Clr Calc Pharmacy 95.4 ml/min; Globulin 3.0 gm/dl (2.5-4.0); Glucose 109.0 mg/dl (70-99(Fasting)); Magnesium 2.2 mg/dl (1.7-2.4); Potassium 4.1 mmol/L (3.5-5.1); Sodium 138.0 mmol/L (136-145); Total Protein 7.8 gm/dl (6.0-8.3)
--- NOTE | 2025-07-03 11:47 | CT Scan Report ---
CT head/brain wo con CLINICAL HISTORY: 30 years-old Female with neuro deficit, acute stroke suspected. Acute strokelike s ymptoms TECHNIQUE: Multiple axial CT images of the head were obtained without contrast. A dose lowering tech nique was utilized adhering to the principles of ALARA. COMPARISON: CTA head of same day FINDINGS: No acute intracranial hemorrhage, midline shift, intracranial mass, hydrocephalus, territorial ischem ia or abnormal extra-axial collection. The calvarium is intact. The paranasal sinuses, mastoid air cells, and middle ear cavities are clear . IMPRESSION: No acute intracranial abnormality. ACT 112: Negative or not required by law. The above report was generated using voice recognition software. It may contain grammatical, syntax o r spelling errors. Electronically signed by: Saud Levine M.D. 07/03/2025 11:45 AM
[2025-07-03 11:57] LABS: INR 0.9 (0.9-1.1); Partial Thromboplastin Time 28 Seconds (21-31); Prothrombin Time 9.6 Seconds (9.0-12.0)
[2025-07-03] MEDS: ASPIRIN CHEW 324 MG PO STA (13:26)
[2025-07-03] MEDS ORDERED: ACETAMINOPHEN 325 MG TAB PO PRN (13:41)
--- NOTE | 2025-07-03 15:16 | Electrocardiogram Report ---
Test Reason : Blood Pressure : */* mmHG Vent. Rate : 76 BPM Atrial Rate : 76 BPM P-R Int : 170 ms QRS Dur : 76 ms QT Int : 380 ms P-R-T Axes : 55 5 11 degrees QTcB Int : 427 ms Normal sinus rhythm Minimal voltage criteria for LVH, may be normal variant ( R in aVL ) Nonspecific T wave abnormality Abnormal ECG When compared with ECG of 18-Dec-2022 15:07, No significant change was found Confirmed by Donnell Recinos ([id number]) on 07/03/2025 3:16:20 PM Referred By: Confirmed By: Donnell Recinos
--- NOTE | 2025-07-03 15:36 | History & Physical Report ---
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 This morning she develops a headache with left-sided weakness/heaviness although she responses may be more of a tingling sensation rather than true weakness around 9:30 AM this morning. Associated slurred speech. No change in hearing or vision. She reports this has not happened previously but she does have complex migraines where she feels bilateral symptoms and when younger her symptoms were on the right side. No prior history of stroke or TIA. Since coming to the emergency room her headache has greatly improved though still present over the front of her head and a pulsating character made worse by lights. She is no longer feeling weak on the left side. Allergies Allergy/AdvReac Type Severity Reaction Status Date / Time chlorpromazine Allergy Severe BREATHING,CHEST Verified 03/02/25 14:17 PAINS,LEG PAIN shellfish derived Allergy Severe Anaphylaxis Verified 03/02/25 14:17 Sulfa (Sulfonamide Allergy Mild Rash Verified 03/02/25 14:17 Antibiotics) azithromycin Allergy Unknown Unknown Verified 03/02/25 14:17 cefaclor Allergy Unknown Unknown Verified 03/02/25 14:17 sulfisoxazole Allergy Unknown Unknown Verified 03/02/25 14:17 topiramate [From Topamax] Allergy "Eyes Verified 03/02/25 14:17 shake" asenapine [From Saphris] AdvReac Verified 03/02/25 14:17 lasticaf eye drops Allergy Eyes get Uncoded 03/02/25 14:17 crusty and red prednisone Allergy Eye shaking Uncoded 03/02/25 14:17 Home Medications Medication Instructions Recorded Confirmed Type albuterol sulfate 90 mcg/actuation 2 puffs inhalation QID PRN 04/05/19 07/03/25 History aerosol inhaler (Ventolin HFA) Shortness Of Breath Or Wheezing riboflavin (vitamin B2) 400 mg 400 mg PO DAILY #30 tabs 05/10/19 07/03/25 History tablet flaxseed oil 1,000 mg capsule 1,000 mg PO DAILY 06/01/19 07/03/25 History blood sugar diagnostic #50 ea 11/04/21 07/03/25 Rx omega-3 fatty acids 1,000 mg 1,000 mg PO DAILY 12/03/21 07/03/25 History capsule sodium chloride 3 % nasal mist 2 spray intranasal .COMPLEX PRN 12/03/21 07/03/25 History (Saline Nasal Mist) DRYNESS hydroxyzine HCl 10 mg tablet 10 mg PO TID PRN Anxiety 02/26/23 07/03/25 History ondansetron 4 mg disintegrating 4 mg PO Q6H PRN nausea and 05/26/23 07/03/25 Rx tablet vomiting #20 tabs lancets 30 gauge (OneTouch Delica #200 ea 08/14/23 07/03/25 Rx Plus Lancet) epinephrine 0.3 mg/0.3 mL 0.3 mg (0.3 mL) IM Q15M PRN 08/27/23 07/03/25 Rx injection, auto-injector anaphylaxis #2 ea blood-glucose meter (OneTouch #1 ea 07/01/24 07/03/25 Rx Ultra2 Meter) xanomeline 50 mg-trospium 20 mg 1 cap PO BID 12/23/24 07/03/25 History capsule (Cobenfy) atogepant 60 mg tablet (Qulipta) 60 mg PO DAILY #30 tabs 02/23/25 07/03/25 Rx Past Med/Surg History Problem List (Updated 07/03/25 @ 18:30 by Geovanny Aviles MD) AVM (arteriovenous malformation) brain Tardive dyskinesia 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 Blood glucose elevated (Acute) Headache (Acute) Stroke-like symptoms (Acute) Early satiety Nausea Epigastric abdominal pain Bilateral occipital neuralgia Dermatitis due to food taken internally Mast cell disorder Food sensitivity with gastrointestinal symptoms Alternating exotropia Persistent headaches Gait disturbance Lab test negative for COVID-19 virus (Acute) Acid reflux Nystagmus Migraine headache Anxiety (Chronic) Asthma (Chronic) Classic migraine with aura (Chronic) Type 2 diabetes mellitus (Chronic) Schizophrenia (Chronic) Depression (Chronic) Medical History History of seizures as a child only one ~age 2, during illness at the time, medicated for a couple years, no further issues Schizophrenia Type 2 diabetes mellitus diet Classic migraine with aura hx Asthma hx, only flares illness>inh prn Anxiety and depression Acid reflux Acne vulgaris Ataxia Esotropia Outbursts of anger hx, no recent issues Suicidal ideation hx Surgical History S/P tympanic tube insertion H/O eye surgery 11/29/24, right eye H/O sinus surgery History of tonsillectomy and adenoidectomy H/O myringotomy as a baby Family History Mother Schizophrenia Diabetes Unknown No problems noted. Other Adopted Denies family history of Ovarian cancer Prostate cancer Myocardial infarction Breast cancer Colorectal cancer Social History Smoking Status: Never smoker Second Hand Exposure: No; Do You Dip or Chew Tobacco: No; Hx Alcohol Use: No Hx Substance Use: No Preferred Language: Wolof Communication Ability: Effective Visual Impairment: No Limitations Hearing Ability: Normal Information Systems Operator Required: No Beliefs That Will Affect Care: None marital status: Single Current Living Situation: Parent Current Living Situation Comment: lives with mother current occupational status: employed current occupation: [employer]ning [employer] Feels Safe at Home: Yes Safety Concerns: Feels Safe At This Time and Afraid for Self Childhood Exposure to Second-Hand Smoke: No Diet: other and regular Diet Comment: headache diet caffeine: No Dental Care, Regularly: Yes Physical Activity Frequency: Daily Seatbelt Use: always Sunscreen Use: Yes Assistive Devices: None Review of Systems Review of Systems: All systems reviewed & are unremarkable except as noted in HPI & below Physical Exam Constitutional: WD/WN, vitals as above Eyes: PERRL, EOM intact bilaterally and + nystagmus (Right greater than left eye horizontal only) ENMT: external ear and nose normal, oropharynx normal Respiratory: normal respiratory effort, lungs clear to auscultation Cardiovascular: RRR, no murmur, no edema Gastrointestinal (Abdomen): normal bowel sounds, soft, nontender, no hepatosplenomegaly Skin: no rashes, warm and dry Neurologic: moves all extremities (Tardive dyskinetic movements of her head) and awake; no focal motor deficits and not confused Speech / Cognition: + abnormal speech (Slurred); no expressive aphasia, no receptive aphasia and normal cognition Motor/Sensory: no tremor and no pronator drift Cranial Nerves: PERRL, EOM intact bilaterally (Horizontal nystagmus bilaterally right eye greater than left present), normal facial strength, tongue midline, able to rotate head bilaterally, able to elevate shoulders bilaterally and symmetric palate elevation; + nystagmus Coordination: normal [id number] test Psychiatric: Orientation: alert and oriented x 3 Results & Data Results & Data Vital Signs (Past 12 Hours) Vital Signs Temp Pulse Pulse Pulse Resp BP BP 07/03/25 14:46 65 07/03/25 13:42 36.8 C 71 16 105/67 07/03/25 12:24 79 13 129/69 07/03/25 11:27 88 16 141/100 H 07/03/25 11:20 07/03/25 11:15 97 H 07/03/25 11:05 101 H 25 H 145/108 H 07/03/25 10:59 36.6 C 07/03/25 10:48 143/96 H Pulse Ox O2 Del Method 07/03/25 14:46 07/03/25 13:42 98 Room Air 07/03/25 12:24 99 Room Air 07/03/25 11:27 99 Room Air 07/03/25 11:20 99 Room Air 07/03/25 11:15 07/03/25 11:05 100 Room Air 07/03/25 10:59 07/03/25 10:48 Laboratory Results Abnormal lab results 07/03/25 07/03/25 Range/Units 10:53 10:58 Neut # (Auto) 6.84 H (1.40-6.50) K/uL [place] # (Auto) 0.71 H (0.11-0.59) K/uL POC Anion Gap 15.0 L (16-25) mmol/L BUN/Creatinine Ratio 22.1 H (10-20) Glucose 109 H (70-99(Fasting)) mg/dl POC Glucose (other) 112 H (70-99) mg/dl Diagnostic Findings CT head/brain wo con CLINICAL HISTORY: 30 years-old Female with neuro deficit, acute stroke suspected. Acute strokelike symptoms TECHNIQUE: Multiple axial CT images of the head were obtained without contrast. A dose lowering technique was utilized adhering to the principles of ALARA. COMPARISON: CTA head of same day FINDINGS: No acute intracranial hemorrhage, midline shift, intracranial mass, hydrocephalus, territorial ischemia or abnormal extra-axial collection. The calvarium is intact. The paranasal sinuses, mastoid air cells, and middle ear cavities are clear. IMPRESSION: No acute intracranial abnormality. CT angio head w con CLINICAL HISTORY: neuro deficit, acute stroke suspected. TECHNIQUE: Unenhanced axial CT scan of the brain is performed. Subsequently, following the IV administration of 112 cc of Optiray, CT angiogram of the brain was performed from the skull base to the vertex. Images are reviewed in the axial, sagittal, and coronal planes. 3-D MIPS images are created and assessed. IV contrast was administered without complication. All measurements were obtai ramirez according to NASCET criteria. A dose lowering technique was utilized adhering to the principles of ALARA. CT DOSE: 981 COMPARISON STUDY: Head CT earlier today FINDINGS: The distal internal carotid arteries are patent. Left vertebral artery is dominant and the diminutive distal right vertebral artery terminates in PICA, anatomic variant. Basilar artery is patent. Anterior, middle, and posterior cerebral arteries are patent bilaterally. There is a prominent serpiginous vessel at the anterior aspect of the right temporal lobe which may represent AVM. IMPRESSION: 1. No significant arterial narrowing or occlusion seen in the brain. 2. 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 CT ANGIOGRAPHY OF THE NECK WITH CONTRAST CLINICAL HISTORY: neuro deficit, acute stroke suspected COMPARISON STUDY: No previous studies for comparison. Technique: CT angiography of the carotid and vertebral arteries was obtained using Optiray and 3D reconstruction on an independent workstation. NASCET criteria was utilized. Automated exposure control was utilized for the study. A dose lowering technique was utilized adhering to the principles of ALARA. CT DOSE: 980.66 mGy.cm Findings: Visualized lung apices are unremarkable. There is no cervical lymphadenopathy. There are no cervical spine effusions. 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 The bilateral common carotid, cervical internal carotid and vertebral arteries are patent. The left vertebral artery is dominant. There is no stenosis, aneurysm or dissection within the neck. CTA of the head will be reported separately. IMPRESSION: Unremarkable CTA of the neck. Medications Administered ER Medications Given: Aspirin 324mg PO ECG Rate (beats per minute): 76 Rhythm: normal sinus Findings: no acute ischemic change Comparison ECG Date: from (December 18, 2022) Change: no significant change Code Status & VTE Plan Code Status Full VTE Prophylaxis Plan VTE Prophylaxis will be ordered: Yes PG Care Time/CCT Total # of Minutes Spent Total Time Spent with Patient: Total time spent is greater than 50% in coordination of care (as documented) at patient's floor/unit and/or counseling patient: Coding Level of Care Code 62919 INT INP/OBS CARE 3/75MIN Diagnoses AVM (arteriovenous malformation) brain Q28.2 Tardive dyskinesia G24.01 Monoallelic mutation of IXWWG7T gene Z15.89 Hemiplegic migraine G43.409 Stroke-like symptoms R29.90 Headache R51.9 Headache chronicity pattern: unspecified pattern Headache type: unspecified Intractability: not intractable (6) Headache Headache chronicity pattern: unspecified pattern Headache type: unspecified Intractability: not intractable Qualified Code(s): R51.9 - Headache, unspecified
[2025-07-03] MEDS: GADOBUTROL 65ML VIAL IV ONE (17:05)
[2025-07-03] MEDS ORDERED: PHARMACIST DISCHARGE MED REC CONSULT PRN (18:05)
--- NOTE | 2025-07-03 18:33 | Neurology Consultation ---
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 This patient's specific genetic variation is felt to be of undetermined significance. However, mutations of this particular calcium channel gene can associate with several different neurological conditions including episodic ataxia type 2 (which associates with nystagmus), epileptic encephalopathy (this patient apparently has had only 1 seizure at age 2), hemiplegic migraine, and spinocerebellar ataxia type 6. Again, the significance of this patient's specific mutation is unknown. Clinically, however, she seems to have episodes of recurrent hemiplegic migraine and has fairly persistent gaze evoked nystagmus for which she has been following with neuro-ophthalmology. At this point, I think it would be reasonable to initiate a trial of verapamil for prevention of hemiplegic migraine, would start with verapamil ER 120 mg at bedtime, the dosage can be adjusted depending on response and tolerability. She may continue with Qulipta for migraine prevention. If she were to develop episodes of ataxia, in conjunction with her nystagmus (which seems to be a more persistent feature for her), could consider a trial of acetazolamide which may be helpful for her episodic ataxia. This patient may also have an arteriovenous malformation at the anterior right temporal lobe, best seen on CT angiography of the head. There may be a similar serpiginous prominent vasculature along the posterior aspect of the left temporal lobe seen on CT angiography per my review. These vascular anomalies do not seem as obvious on the gadolinium-enhanced brain MRI. It may be worthwhile to have this patient see a neuroradiologist or neurosurgeon going forward for a possible conventional cerebral arteriogram and an opinion regarding these possible cerebral AVMs. I have also recommended an inpatient EEG. This patient may follow-up with Dr. Jones or one of our LAWRENCE's in neurology clinic 2 to 3 weeks after discharge. Please call with any questions. History of Present Illness Reason for Consultation: Strokelike symptoms, complex migraine Requesting Physician: Ana Attending Physician: Yoandy Perez MD History of Present Illness The patient is a 30-year-old right handed female, has been following with Dr. Jones in neurology clinic for migraine and have been getting occipital nerve injections for occipital neuralgia with Dr. Fay. She follows with psychiatry for schizophrenia and has tardive dyskinesia, she has previously declined treatment for this issue. She has been noted to have gaze evoked nystagmus on examination previously and has been following with a neuro-rehabilitation case coordinator, Dr. Rosado. 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 This patient specific genetic variant is felt to be of undetermined clinical significance. Pathogenic variants of this particular gene, however, have been associated with episodic ataxia type2 and nystagmus. As well as epileptic encephalopathy and familial hemiplegic migraine. This patient does have a history of an isolated seizure that occurred around age 2. She has been dealing with fairly refractory migraine in our clinic and does report having episodes of hemiplegia in association with her migraines in the past. Currently, she has prescribed Qulipta for migraine prevention, she had been on Nurtec ODT previously. This patient is adopted and a full family history is unavailable. She presented to the emergency department earlier this morning with an episode of headache and left-sided weakness and heaviness that began about 30 minutes prior to arrival, her symptoms have significantly improved. A CTA of the head and neck were negative for arterial dissection or occlusion, there was a possible AVM within the anterior right temporal lobe, per my review of the images, there may be a similar prominent tortuous vasculature within the posterior left temporal lobe as well. She did have a follow-up brain MRI completed, gadolinium-enhanced, seizure protocol. I did independently review these images, radiology report not available at this time. I do not appreciate any evidence of acute or subacute infarct on DWI sequences. There is no Chiari malformation or hydrocephalus. There are no abnormalities on GRE to indicate chronic microhemorrhage or calcifications. The brain parenchyma appears grossly normal on FLAIR and T2 weighted sequences. Temporal lobes are symmetric on T2 coronal weighted sequences. I can appreciate the prominent peripheral vasculature within the anterior right temporal lobe and posterior left temporal lobe on gadolinium enhanced sequences, although the potential AVMs seem to be much better appreciated on CT angiography of the head. Allergies Allergy/AdvReac Type Severity Reaction Status Date / Time chlorpromazine Allergy Severe BREATHING,CHEST Verified 03/02/25 14:17 PAINS,LEG PAIN shellfish derived Allergy Severe Anaphylaxis Verified 03/02/25 14:17 Sulfa (Sulfonamide Allergy Mild Rash Verified 03/02/25 14:17 Antibiotics) azithromycin Allergy Unknown Unknown Verified 03/02/25 14:17 cefaclor Allergy Unknown Unknown Verified 03/02/25 14:17 sulfisoxazole Allergy Unknown Unknown Verified 03/02/25 14:17 topiramate [From Topamax] Allergy "Eyes Verified 03/02/25 14:17 shake" asenapine [From Saphris] AdvReac Verified 03/02/25 14:17 lasticaf eye drops Allergy Eyes get Uncoded 03/02/25 14:17 crusty and red prednisone Allergy Eye shaking Uncoded 03/02/25 14:17 Home Medications Medication Instructions Recorded Confirmed Type albuterol sulfate 90 mcg/actuation 2 puffs inhalation QID PRN 04/05/19 07/03/25 History aerosol inhaler (Ventolin HFA) Shortness Of Breath Or Wheezing riboflavin (vitamin B2) 400 mg 400 mg PO DAILY #30 tabs 05/10/19 07/03/25 History tablet flaxseed oil 1,000 mg capsule 1,000 mg PO DAILY 06/01/19 07/03/25 History blood sugar diagnostic #50 ea 11/04/21 07/03/25 Rx omega-3 fatty acids 1,000 mg 1,000 mg PO DAILY 12/03/21 07/03/25 History capsule sodium chloride 3 % nasal mist 2 spray intranasal .COMPLEX PRN 12/03/21 07/03/25 History (Saline Nasal Mist) DRYNESS hydroxyzine HCl 10 mg tablet 10 mg PO TID PRN Anxiety 02/26/23 07/03/25 History ondansetron 4 mg disintegrating 4 mg PO Q6H PRN nausea and 05/26/23 07/03/25 Rx tablet vomiting #20 tabs lancets 30 gauge (OneTouch Delica #200 ea 08/14/23 07/03/25 Rx Plus Lancet) epinephrine 0.3 mg/0.3 mL 0.3 mg (0.3 mL) IM Q15M PRN 08/27/23 07/03/25 Rx injection, auto-injector anaphylaxis #2 ea blood-glucose meter (First InsightTouch #1 ea 07/01/24 07/03/25 Rx Ultra2 Meter) xanomeline 50 mg-trospium 20 mg 1 cap PO BID 12/23/24 07/03/25 History capsule (Cobenfy) atogepant 60 mg tablet (Qulipta) 60 mg PO DAILY #30 tabs 02/23/25 07/03/25 Rx Patient History Medical History History of seizures as a child only one ~age 2, during illness at the time, medicated for a couple years, no further issues Schizophrenia Type 2 diabetes mellitus diet Classic migraine with aura hx Asthma hx, only flares illness>inh prn Anxiety and depression Acid reflux Acne vulgaris Ataxia Esotropia Outbursts of anger hx, no recent issues Suicidal ideation hx Surgical History S/P tympanic tube insertion H/O eye surgery 11/29/24, right eye H/O sinus surgery History of tonsillectomy and adenoidectomy H/O myringotomy as a baby Family History Mother Schizophrenia Diabetes Unknown No problems noted. Other Adopted Denies family history of Ovarian cancer Prostate cancer Myocardial infarction Breast cancer Colorectal cancer Social History Smoking Status: Never smoker Second Hand Exposure: No; Do You Dip or Chew Tobacco: No; Hx Alcohol Use: No Hx Substance Use: No Preferred Language: Yi Communication Ability: Effective Visual Impairment: No Limitations Hearing Ability: Normal Medical Collections Required: No Beliefs That Will Affect Care: None marital status: Single Current Living Situation: Parent Current Living Situation Comment: lives with mother current occupational status: employed current occupation: [employer] Feels Safe at Home: Yes Safety Concerns: Feels Safe At This Time and Afraid for Self Childhood Exposure to Second-Hand Smoke: No Diet: other and regular Diet Comment: headache diet caffeine: No Dental Care, Regularly: Yes Physical Activity Frequency: Daily Seatbelt Use: always Sunscreen Use: Yes Assistive Devices: None Review of Systems Constitutional: no fever and no chills Eyes: as per Subjective / HPI; no blind spots and no diplopia Ear, Nose, Mouth, Throat: no hearing loss Respiratory: no dyspnea Cardiovascular: no palpitations Gastrointestinal: no nausea and no vomiting Genitourinary: no dysuria Musculoskeletal: no myalgia Integumentary: no rash Neurologic: as per Subjective / HPI, + localized weakness and + headache(s); no abnormal speech, no confusion and no memory loss Psychiatric: as per Subjective / HPI; no depression and no anxiety Hematologic / Lymphatic: no easy bleeding and no easy bruising Exam (Neuro) Constitutional: well developed and well nourished; no acute distress Eyes: normal visual boss by confrontation, PERRL, normal accommodation and EOM intact bilaterally; no nystagmus Neurologic: Oriented to:: Person, Place and Time Memory: Short Term Intact and Remote Intact Attention: Span Intact and Concentration Intact Language: Naming Objects and Repeating Phrases Speech Fluency: negative Dysarthria Speech Aphasia: negative Aphasia Fund of Knowledge: Current Events, Past History and Vocabulary Cranial Nerves: Normal II (Visual boss full to confrontation, visual acuity normal), III, IV, (Pupils equal round reactive to light and accommodation, eye movements normal), V (Facial sensation intact), VII (There is no facial droop or weakness), VIII (Hearing intact), IX, X (Palate elevates to midline), XI (Shoulder shrug intact) and XII (Tongue protrudes to midline) Motor Strength: Normal Lower Extremities and Normal Upper Extremities; negative Pronator Drift Motor Tone: Normal Lower Extremities and Normal Upper Extremities Muscle Bulk/Involuntary Movements: No Involuntary Movements; negative Muscle Atrophy Sensation: Light Touch Intact, Pain/Temperature Intact, Vibration Intact and Proprioception Intact Coordination: Normal; negative Limited Balance, Dysdiadochokinesia, Finger-Nose Abnormal or Heel-Arteaga Abnormal Deep Tendon Reflexes: Rt Triceps: 2+, Lt Triceps: 2+, Rt Biceps: 2+, Lt Biceps: 2+, Rt Brachioradialis: 2+, Lt Brachioradialis: 2+, Rt Patellar: 2+, Lt Patellar: 2+, Rt Ankle: 2+ and Lt Ankle: 2+ Special Tests: negative Babinski Present Gait: Normal Station and Gait Results & Data Vital Signs (Past 12 Hours) Vital Signs Temp Pulse Pulse Pulse Resp BP BP 07/03/25 14:46 65 07/03/25 13:42 36.8 C 71 16 105/67 07/03/25 12:24 79 13 129/69 07/03/25 11:27 88 16 141/100 H 07/03/25 11:20 07/03/25 11:15 97 H 07/03/25 11:05 101 H 25 H 145/108 H 07/03/25 10:59 36.6 C 07/03/25 10:48 143/96 H Pulse Ox O2 Del Method 07/03/25 14:46 07/03/25 13:42 98 Room Air 07/03/25 12:24 99 Room Air 07/03/25 11:27 99 Room Air 07/03/25 11:20 99 Room Air 07/03/25 11:15 07/03/25 11:05 100 Room Air 07/03/25 10:59 07/03/25 10:48 Coding Level of Care Code 72478 INT INP/OBS CARE 3/75MIN Diagnoses Hemiplegic migraine G43.409 Nystagmus H55.00 Monoallelic mutation of [id number] gene Z15.89 AVM (arteriovenous malformation) brain Q28.2 Tardive dyskinesia G24.01 Time Spent (min) 90 Comment Total time includes patient contact, chart review, counseling, note preparation
--- NOTE | 2025-07-03 18:51 | Magnetic Resonance Report ---
Clinical History: Seizures Technique: Multiple T1 and T2-weighted magnetic resonance images were obtained of the brain before and after the administration of 7 cc of Gadavist intravenous gadolinium contrast Findings: There is no sign of acute or old infarction with normal-appearing diffusion weighted images. No definite focus of demyelination is seen. There is no definite sign of tuttle matter heterotopia, mesial temporal sclerosis, focal atrophy, vascular malformation, or neurocutaneous syndrome. No mass lesion or other area of abnormal enhancement is seen. There is no intracranial hemorrhage or other fluid collection. No midline shift or other form of herniation is seen. There is no hydrocephalus. Normal flow-voids are seen within the arteries of the [id number]. The orbits and paranasal sinuses appear normal. The mastoid air cells appear clear. Impression: Unremarkable MRI of the brain Electronically signed by Arya Dobson 07-03-2025 6:50 PM
[2025-07-03] MEDS ORDERED: ALBUTEROL HFA 8 GM INHALER INH PRN (19:30)
[2025-07-03] MEDS ORDERED: ONDANSETRON 4 MG OD TAB PO PRN (19:30)
[2025-07-03] MEDS ORDERED: SODIUM CHLORIDE 0.65% NA SOLN 45 ML (OCEAN) PRN (19:34)
[2025-07-04 06:09] LABS: Hematocrit (blood only) 42.8 % (37.0-47.0); Hemoglobin 14.2 g/dl (12.0-16.0); Immature Granulocytes # (auto) 0.03 K/uL (0.01-0.20); Immature Granulocytes % (auto) 0.3 %; Mean Corpuscular Hemoglobin 29.2 pg (25.0-34.0); Mean Corpuscular Volume 88.1 fL (80.0-100.0); Platelet Count 232 K/uL (130-400); RDW Standard Deviation 40.7 fL (36.4-46.3); Red Blood Count 4.86 M/uL (4.20-5.40); White Blood Count 9.22 K/ul (4.8-10.8)
[2025-07-04 06:30] LABS: Anion Gap 5.0 (3-11); Blood Urea Nitrogen 14.0 mg/dl (6-23); Calcium 9.0 mg/dl (8.6-10.3); Carbon Dioxide 27.0 mmol/L (21-32); Chloride 105.0 mmol/L (98-107); Cholesterol 164.0 mg/dl (0-200); Creatinine Clr Calc Pharmacy 90.7 ml/min; Glucose 104.0 mg/dl (70-99(Fasting)); HDL Cholesterol 51.0 mg/dl; Potassium 4.7 mmol/L (3.5-5.1); Sodium 137.0 mmol/L (136-145); Triglycerides 82.0 mg/dl (0-150)
[2025-07-04 08:33] LABS: Hemoglobin A1C 5.8 % (4.5-5.6)
[2025-07-04 08:41] VITALS: BP 100/63; RESP 16; TEMP 98.4; O2SAT 99
[2025-07-04] MEDS ORDERED: STROKE PATIENT DISCHARGE STA (10:46)
--- NOTE | 2025-07-04 10:48 | Discharge Summary ---
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 Her symptoms resolved and she is back to baseline on discharge. Brain MRI was unremarkable for acute pathology. She was seen by neurology and diagnosed with complex migraine and recommended starting verapamil for migraine prevention. EEG was unable to be performed as inaptient but will be arranged as outpatient and she will follow up with neurology for ongoing management. Notes For Next Care Provider No routine PCP follow-up required Follow-up with neurology for complex migraine with EEG to be arranged as outpatient Medication Changes From Visit Verapamil started for migraine prophylaxis Admission HPI Per Admitting Provider Keyona Acuña is a 30 year old female with nystagmus, schizophrenia, complex migraines, occipital neuralgia and tardive dyskinesia who presents to the ER with strokelike symptoms. This morning she develops a headache with left-sided weakness/heaviness although she responses may be more of a tingling sensation rather than true weakness around 9:30 AM this morning. Associated slurred speech. No change in hearing or vision. She reports this has not happened previously but she does have complex migraines where she feels bilateral symptoms and when younger her symptoms were on the right side. No prior history of stroke or TIA. Since coming to the emergency room her headache has greatly improved though still present over the front of her head and a pulsating character made worse by lights. She is no longer feeling weak on the left side. Discharge Exam Patient feels back to baseline Constitutional WD/WN, vitals as above Respiratory normal respiratory effort; no respiratory distress Neurologic moves all extremities and awake; no focal motor deficits tardive dyskinetic movements Discharge Plan Discharge Items Patient Disposition: Home - Self-Care Reason For Visit: STROKE LIKE SYMPTOMS Discharge Diagnosis: Complex migraine Condition on Discharge: Fair Activity: Resume your previous activity Non-emergency contact: Neurologist Call non-emergency contact if: you have any medication questions and your symptoms worsen Follow-up/Referrals: Geovanny Aviles MD [Physician] - (Follow-up complex migraine with EEG) Stephenie Griffin MD [Primary Care Provider] - (No recent PCP follow-up required) Diet: Regular Addtl Attending Provider Instructions: You were observed at [facility] from July 03 to 2024 due to strokelike symptoms. Brain MRI was unremarkable for pathology. You were diagnosed with complex migraine after being seen by neurology and recommended starting verapamil for migraine prevention. This is a blood pressure medication therefore if you start feeling dizzy or lightheaded recommend discontinuing this. EEG will be arranged as an outpatient and recommend following up with neurology. Pending Studies at Discharge: No Stand-Alone Forms: My [facility], Smoking Cessation Medications and DC Order Prescriptions: New verapamil 120 mg capsule,ext rel. pellets 24 hr 120 mg PO QPM Qty: 30 0RF Continued (DME) blood sugar diagnostic Strip See Dose Instructions .ROUTE .MEDSUPPLY Qty: 50 5RF Dose Instruction: As directed Rx Instructions: Test once daily hydroxyzine HCl 10 mg tablet 10 mg PO TID PRN (Reason: Anxiety) Hold Instructions: side effects (DME) lancets [OneTouch Delica Plus Lancet] 30 gauge misc See Rx Instructions .Route Qty: 200 4RF Rx Instructions: Test blood sugars once daily (DME) blood-glucose meter [OneTouch Ultra2 Meter] Misc See Rx Instructions .Route Qty: 1 0RF Rx Instructions: TEST DAILY; DX CODE- E11.9 epinephrine 0.3 mg/0.3 mL auto-injector 0.3 mg IM Q15M PRN (Reason: anaphylaxis) Qty: 2 0RF albuterol sulfate [Ventolin HFA] 90 mcg/actuation HFA aerosol inhaler 2 puffs INH QID PRN (Reason: Shortness Of Breath Or Wheezing) riboflavin (vitamin B2) 400 mg tablet 400 mg PO DAILY Qty: 30 flaxseed oil 1,000 mg capsule 1,000 mg PO DAILY ondansetron 4 mg tablet,disintegrating 4 mg PO Q6H PRN (Reason: nausea and vomiting) Qty: 20 0RF Qulipta 60 mg tablet 60 mg PO DAILY Qty: 30 5RF omega-3 fatty acids 1,000 mg Capsule 1,000 mg PO DAILY Saline Nasal Mist 3 % mist 2 spray intranasal .COMPLEX PRN (Reason: DRYNESS) Rx Instructions: 2 sprays intranasal use as often as needed; Cobenfy 50-20 mg Capsule 1 cap PO BID Discharge Orders: Discharge Order (Routine); Ordered 07/04/25 Ordered By: Yoandy Perez Admission Data Admit Date/Time: 07/03/25 12:39 Attending Provider: Yoandy Perez Admit Provider: Yoandy Perez Primary Care Provider: Stephenie Griffin Other Providers: Yoandy Perez; Geovanny Aviles Other Interventions: Discharge Summary Assessment (RN) Last Done: 07/04/25 11:39 Hospital Stay Data Consultations 07/03/25 12:22 ED Decision to Admit Stat 07/03/25 15:42 Consult Neurology Routine Diagnostic Imagining Performed 07/03/25 10:47 CT angio head w con Stat CT angio neck with con Stat CT head/brain wo con Stat 07/03/25 16:28 MR brain seizure wo/w con Routine Pending Results Patient Have Any Pending Studies at Discharge: No Discharge Instructions Given to Patient (Per Discharging Provider) You were observed at [facility] from July 03 to 2024 due to strokelike symptoms. Brain MRI was unremarkable for pathology. You were diagnosed with complex migraine after being seen by neurology and recommended starting verapamil for migraine prevention. This is a blood pressure medication therefore if you start feeling dizzy or lightheaded recommend discontinuing th is. EEG will be arranged as an outpatient and recommend following up with neurology. Total Time Total Time Spent Total Time Spent (In Minutes): 40 Total Time Includes: Examination of the Patient, Discharge Planning, Medication Reconciliation and Communication With Other Providers Coding Level of Care Code 11785 INP/OBS DISCH >30 MIN Diagnoses AVM (arteriovenous malformation) brain Q28.2 Tardive dyskinesia G24.01 Monoallelic mutation of [id number] gene Z15.89 Hemiplegic migraine G43.409 Stroke-like symptoms R29.90 Headache R51.9 Headache chronicity pattern: unspecified pattern Headache type: unspecified Intractability: not intractable
[2025-07-04 11:41] VITALS: PULSE 88
== END 2025-07-04 12:00 | disposition home or self-care (01) ==
LOC: 2W 10:42 → ED 10:42 → 2W 16:45